=== PATIENT | male | born 1955 | race Caucasian/White ===

== ENCOUNTER 2016-11-13 13:57 | Emergency (ER) | payer MEDICARE ==
[~2016-11-13] VITALS: Ht 170.1 cm; Wt 114.3 kg
[~2016-11-13 13:57] MED LIST: 'TENORMIN50 MG; AMLODIPINE10 MG PO; ASPIRIN325 MG PO; ATENOLOL100 MG PO; ATENOLOL50 MG PO; CLOPIDOGREL75 MG PO; COREG25 MG PO; DYAZIDE 25 MG-31 CAP PO; EYE GTTS; GABAPENTIN600 MG PO; GLIPIZIDE10 M2 PO; GLIPIZIDE10 MG PO; GLUCOPHAGE500 M1 PO; HUMULIN R100 U/ML; HYDR25T PO; HYDRODIURIL25 MG PO; K-DUR 2020 MEQ PO; LANTUS100 U/ML SC; LATANOPROST 2.2.5 ML OU; LIPITOR20 MG PO; LIPITOR40 MG PO; LISINOPRIL/HCTZ1 TA2 PO; LISINOPRIL20 MG PO; LISINOPRIL40 MG PO; NITROSTAT0.4 MG SL; PLAVIX75 MG PO; POTASSIUM20 MEQ PO; SIMVASTATIN40 MG PO; TENORMIN100 MG PO; TOPROL XL50 MG PO; WALKER; ZANTAC150 MG PO; ZOLOFT100 MG PO
[2016-11-13] MEDS ORDERED: PREDNISONE10 MG PO (14:41)
== END 2016-11-13 14:38 | disposition home or self-care (01) ==
LOC: ED 13:57
DX: L23.7 Allergic contact dermatitis due to plants, except food (principal); F17.200 Nicotine dependence, unspecified, uncomplicated; Z88.8 Allergy status to other drugs, medicaments and biological substances; Z79.899 Other long term (current) drug therapy

== ENCOUNTER 2016-11-20 16:22 | Emergency (ER) | payer MEDICARE ==
[~2016-11-20] VITALS: Wt 113.4 kg
[~2016-11-20 16:22] MED LIST changes: +PREDNISONE10 MG PO
[2016-11-20 16:45] LABS: BASO % 0.1 % (0.0-1.0); EOS # 0.1 10*3/uL (0.0-0.4); EOS % 0.9 % (1.0-4.0); HEMOGLOBIN 12.8 g/dl (14.0-18.0); IG # 0.1 10*3/uL (0.0-0.1); LYMPH # 2.7 10*3/uL (1.3-4.4); LYMPH % 19.1 % (27.0-41.0); MEAN CELL VOLUME 87.3 fl (80.0-94.0); MEAN CORPUSCULAR HGB 30.2 pg (27.0-31.0); MEAN CORPUSCULAR HGB CONC 34.6 g/dl (33.0-37.0); MEAN PLATELET VOLUME 10.3 fl (9.6-12.3); MONO # 0.8 10*3/uL (0.1-1.0); MONO % 5.7 % (3.0-9.0); NEUT # 10.3 10*3/uL (2.3-7.9); NEUT % 73.2 % (47.0-73.0); PLATELET COUNT AUTOMATED 156 10*3/uL (130-400); RED BLOOD COUNT 4.24 10*6/uL (4.50-5.90); RED CELL DISTRI WIDTH 13.3 % (0-14.5)
[2016-11-20 16:54] LABS: INTERNATIONAL NORM RATIO 0.9 (2.0-3.5)
[2016-11-20 17:10] LABS: ALBUMIN 3.5 gm/dl (3.1-4.5); ALKALINE PHOSPHATASE 72 U/L (45-117); BILIRUBIN, TOTAL 0.4 mg/dl (0.2-1.0); BUN 23 mg/dl (7-24); CARBON DIOXIDE 25 mmol/L (21-32); CHLORIDE 100 mmol/L (98-107); EST GLOM FILT AFRICAN AMERICAN > 60 ml/min; GLUCOSE 353 mg/dL (65-99); MAGNESIUM 2.2 mg/dL (1.5-2.1); POTASSIUM 3.2 mmol/L (3.5-5.1); SGOT/AST 8 IU/L (3-35); SGPT/ALT 20 U/L (12-78); SODIUM 135 mmol/L (136-145)
[2016-11-20 17:11] LABS: TROPONIN I < 0.015 ng/ml (<0.045)
== END 2016-11-20 19:13 | disposition short-term general hospital (02) ==
LOC: ED 16:22
PROVIDERS: Nurse Practitioner Family
DX: I63.9 Cerebral infarction, unspecified (principal); I11.0 Hypertensive heart disease with heart failure; I50.9 Heart failure, unspecified; E11.9 Type 2 diabetes mellitus without complications; I25.2 Old myocardial infarction; K21.9 Gastro-esophageal reflux disease without esophagitis; E78.5 Hyperlipidemia, unspecified; Z88.8 Allergy status to other drugs, medicaments and biological substances; Z79.899 Other long term (current) drug therapy; Z79.4 Long term (current) use of insulin

== ENCOUNTER → 2017-02-19 | Outpatient (CLI) | payer MEDICARE ==
[2017-02-19 08:36] LABS: BILIRUBIN NEGATIVE (NEGATIVE); BLOOD NEGATIVE (NEGATIVE); CLARITY CLEAR (CLEAR); COLOR YELLOW (YELLOW); GLUCOSE NEGATIVE (NEGATIVE); KETONE NEGATIVE (NEGATIVE); LEUKO ESTERASE NEGATIVE (NEGATIVE); NITRITE NEGATIVE (NEGATIVE); PH 5.5 (5.0-9.0); UROBILINOGEN 0.2 E.U./dl (0.2-1.0)
[2017-02-19 08:37] LABS: MUCOUS 1+; RBC 0-2 rbc/hpf (0-2); WBC 0-2 wbc/hpf (0-5)
[2017-02-19 08:53] LABS: ALBUMIN 3.7 gm/dl (3.1-4.5); BUN 16 mg/dl (7-24); CHLORIDE 107 mmol/L (98-107); CREATININE 0.74 mg/dL (0.70-1.30); PHOSPHOROUS 2.9 mg/dL (2.5-4.9); POTASSIUM 3.8 mmol/L (3.5-5.1); SODIUM 142 mmol/L (136-145)
[2017-02-20 10:08] LABS: CREATININE,URINE 84.4 mg/dL (Not Estab.)
== END | disposition home or self-care (01) ==
LOC: LAB 07:56
PROVIDERS: Internal Medicine Nephrology
DX: I10 Essential (primary) hypertension (principal); E11.9 Type 2 diabetes mellitus without complications

== ENCOUNTER → 2017-03-08 | Outpatient (CLI) | payer MEDICARE | END | disposition home or self-care (01) | LOC: RESCLI 03:15 | DX: I10 Essential (primary) hypertension (principal); E78.5 Hyperlipidemia, unspecified; I25.10 Atherosclerotic heart disease of native coronary artery without angina pectoris; E11.40 Type 2 diabetes mellitus with diabetic neuropathy, unspecified; Z79.4 Long term (current) use of insulin; Z88.8 Allergy status to other drugs, medicaments and biological substances ==

== ENCOUNTER → 2017-03-15 | Outpatient (CLI) | payer MEDICARE | END | disposition home or self-care (01) | LOC: RESCLI 01:58 | DX: I10 Essential (primary) hypertension (principal); E78.5 Hyperlipidemia, unspecified; I25.10 Atherosclerotic heart disease of native coronary artery without angina pectoris; E11.40 Type 2 diabetes mellitus with diabetic neuropathy, unspecified; Z79.4 Long term (current) use of insulin; Z88.8 Allergy status to other drugs, medicaments and biological substances ==

== ENCOUNTER 2017-03-30 01:18 | Inpatient (IN) | payer MEDICARE ==
[~2017-03-30] VITALS: Ht 170.2 cm; Wt 113.6 kg
--- NOTE | ~2017-03-30 | PR ---
[place], [place] PROGRESS NOTE NAME: CONTRERAS CARDOZO [facility] #: [id number] UNIT #: [id number] ROOM: 504 DOCTOR: YULI CAREY MD BIRTHDATE: [birth year] DOS: 03/31/2017 SUBJECTIVE: The patient was seen today at his bedside, 03/31/2017, with his in attendance. He is a 61-year-old man who does have a history of coronary artery disease as well as a history of strokes. He has had angioplasty in the past; those records are not currently available. His most recent stress test in October 2015 showed an ejection fraction of 71% and no ischemia. The patient was at the blood bank yesterday and found to have bradycardia. He was sent to the medical clinic where once again bradycardia was documented. As best I can tell the bradycardia was just documented by pulse or utilization of noninvasive blood pressure equipment. Nonetheless, there was concern that he may have significant arrhythmias and therefore he was sent to the hospital. Since he has been in the hospital, his heart rate has been normal. The slowest pulse documented by electrocardiographic monitoring was in the high 50s. He had no prolonged pauses. He did have frequent PACs. It is my supposition that the PACs were not counted by the noninvasive equipment and he was therefore given a spuriously low heart rate. The patient does have an extensive history of cerebrovascular events or stroke-like events. He was life-flighted from [facility] to the [facility] in November 2016. I have reviewed the records from [facility]. They showed minimal changes on his CAT scan of the head and MRI. No evidence for an acute or chronic stroke was seen. In addition, he had a normal echocardiogram and a normal electroencephalogram. Despite this, he did have prolonged neurologic deficits and did require rehabilitation. He states that he still does have some weakness in his right arm. Overnight, he has had no symptoms. I talked to his and she states that he is at his baseline. PHYSICAL EXAMINATION: VITAL SIGNS: Today his pulse is 71 and regular with occasional premature beats, blood pressure is 120/70. He is afebrile. He weighs 113.6 kilograms. NECK: Supple. He has no jugular distention. Carotids are full. LUNGS: Respirations are unlabored. His chest is clear. HEART: Has a regular rhythm with frequent premature contractions. ABDOMEN: Benign. EXTREMITIES: Showed no edema. IMPRESSION: 1. Examination as an outpatient suggesting erratic pulse and slow heart rate. No monitor strips are available. Monitoring in the hospital shows only sinus rhythm with premature atrial contractions. The longest pause recorded was 1.5 seconds. It is likely that the bradycardia was related to undersensing of premature atrial contractions by noninvasive equipment. 2. History of neurologic events, which may represent cryptogenic strokes. Despite significant and prolonged neurologic deficits, the patient's most recent MRI of the brain showed no significant scarring or evidence for previous stroke. [place], [place] PROGRESS NOTE NAME: CONTRERAS CARDOZO UNIT #: [id number] ROOM: 504 DOCTOR: YULI CAREY MD BIRTHDATE: [birth year] 3. History of hypertension. 4. Type 2 diabetes mellitus, on insulin. PLAN: No other cardiac workup is planned for this inpatient stay. I am somewhat concerned that his "bradycardia" and irregular pulse might be actually atrial fibrillation with pulse deficits. Since this would certainly impact his management and may help explain his neurologic events, I will be arranging for him to undergo a 30-day event recorder as an outpatient and we can follow up with him after that. No other cardiac workup at this time is being considered. I thank the hospitalist physicians for asking our advice regarding his care and I have discussed his care with Dr. Salomón Zimmerman. YULI CAREY MD CM:PNTRANS 35 50 YULI CAREY MD 03/31/171951 interface
--- NOTE | ~2017-03-30 | EKG ---
[place], [place] ELECTROCARDIOGRAM REPORT NAME: CONTRERAS CARDOZO UNIT #: [id number] ROOM: 504 DOCTOR: JOSELIN COURTNEY MD BIRTHDATE: [birth year] DOS: 03/30/2017 EKG REPORT TIME: 09:39:33. RATE AND RHYTHM: Normal sinus rhythm at 77 beats per minute. ID interval 240 milliseconds, QRS duration 97 milliseconds, corrected QT interval 448 milliseconds, QRS axis 16. IMPRESSION: 1. Normal sinus rhythm. 2. First degree atrioventricular block. 3. The patient had bradycardia, heart rate was 37 and the patient will be admitted for bradycardia on monitored bed. JOSELIN COURTNEY MD CM:EKGRPT:ELECTROCARDIOGRAM REPORT [id number] JOSELIN COURTNEY MD
--- NOTE | ~2017-03-30 | CON ---
[place], [place] REPORT OF CON[facility]ULTATION [id number] #: [id number] ROOM: 504 DOCTOR: YULI CAREY MD BIRTHDATE: [birth year] DOS: 03/30/2017 REASON FOR CONSULTATION: Irregular heartbeat, bradycardia. HISTORY OF PRESENT ILLNESS: The patient is a 61-year-old man with a fairly extensive history of vascular disease. He states that in 2001, he had a stroke. He suffered an acute myocardial infarction in the when he was in his 30s. He underwent catheterization and balloon angioplasty without placement of stent at that time. Those records are not currently available. He subsequently had a catheterization at the [facility] in [place] and was told that everything was "okay." He presented to the hospital in 09/2014 with atypical chest pain. He showed no objective evidence for an acute coronary syndrome. A stress test in 09/2014 showed an ejection fraction of 74% and no significant ischemia, another one in 10/2015 showed ejection fraction of 71%, again with no ischemia. The patient did have an MRI of the brain in 2012, which showed mild chronic small vessel ischemic changes, but no evidence for an acute intracranial process. He presented to the hospital on 11/20/2016 with slurred speech and an abnormal CT scan of the head suggesting a possible left middle cerebral artery stroke. He did develop right-sided weakness. He was sent by helicopter to the [facility] where he was evaluated and subsequently discharged to rehabilitation at [facility]. The details of that hospitalization are not yet clear. The patient has improved and states that he has most of the use of his right side now, although when he first was discharged from the hospital, his right side was quite weak. Yesterday, he went to a blood bank to donate was told that his pulse was slow and erratic. He was directed to see his physician. He was seen at the [facility] where once again he was told that his pulse was slow and erratic and directed to the hospital for admission. Since he has been in the hospital, his pulse has been 60-80 with premature atrial contractions, but no other significant arrhythmias. Specifically, there has been no evidence for atrial fibrillation. PAST MEDICAL HISTORY: Includes: 1. Premature coronary artery disease. The patient states that he had a myocardial infarction in the when he was in his 30s and subsequently underwent balloon angioplasty. 2. History of stroke in 2001 and again in November of 2016. 3. History of hypertension. 4. Type 2 diabetes mellitus, treated with insulin. 5. History of right rotator cuff repair. 6. History of kidney stone. 7. History of tobacco abuse. The patient has been abstinent since November of 2016. 8. History of stroke, 11/2016. Details not yet available. REVIEW OF SYSTEMS: The patient denies diplopia or loss of vision. He has chronic right-sided weakness. He denies orthopnea or PND. Denies fevers, [place], [place] REPORT OF CONSULTATION NAME: CONTRERAS CARDOZO UNIT #: [id number] ROOM: [facility] DOCTOR: YULI CAREY MD BIRTHDATE: [birth year] chills, sweats or recent weight change. He denies falling. He denies nausea or vomiting. He denies hemoptysis or hematemesis. He denies any change in his bowel or bladder habits and denies blood in his urine or stool. He denies any recent change in his mild chronic peripheral edema. He denies any history of lower extremity venous thrombosis. He denies any skin rashes. He denies any polyuria or polydipsia. Remainder of the review of systems is negative except as noted above. FAMILY HISTORY: Positive for family members having heart disease at an early age. His father and paternal uncle had heart attacks in their 50s. MEDICATIONS: Prior to admission included amlodipine 5 mg per day, vitamin C 500 mg per day, aspirin 81 mg per day, atorvastatin 80 mg per day alternating with 40 mg per day, gabapentin 600 mg t.i.d., glipizide 10 mg every day, lisinopril 5 mg every day, melatonin 3 mg at bedtime, metformin 500 mg 2 tablets b.i.d. with meals, ranitidine 150 mg b.i.d., sertraline 150 mg at bedtime, spironolactone 25 mg daily, vitamin D 1 capsule daily, Lantus insulin 80 units subcutaneously at bedtime and diclofenac 4 grams topically b.i.d. to his knees. ALLERGIES: The patient lists an allergy to omeprazole. SOCIAL HISTORY: The patient is and lives with his . He was a smoker, but quit in 11/2016. He does not consume alcohol. PHYSICAL EXAMINATION: GENERAL: The patient is an overweight white male who is awake, alert and oriented, but confuses easily and seems to be a very poor historian. VITAL SIGNS: Pulse is 62 and regular with frequent premature beats. These are PACs on the monitor. Blood pressure is 124/68. He is afebrile. He weighs 113.6 kg and has a body mass index of 39.2. HEENT: Normocephalic and atraumatic. Extraocular muscles are intact. Sclerae are clear. Pupils are equal, round and react to light. The oral mucosa is moist. Tongue is midline. NECK: Supple. He has no jugular distention. Carotids are full and I heard no bruits. He had no neck or supraclavicular masses and no thyromegaly. LUNGS: Respirations are unlabored. His chest is clear to auscultation and percussion. He has no presacral edema or chest wall tenderness. CARDIOVASCULAR: His heart has a regular rhythm with frequent premature contractions. He has an S4 gallop, but no S3 or murmur. The PMI is not displaced. There is no precordial heave, lift or thrill. ABDOMEN: Obese, but otherwise benign, without masses, organomegaly or bruits. EXTREMITIES: Showed no edema. Peripheral pulses were palpable in the feet bilaterally. LABORATORY DATA: I reviewed his electrocardiogram, which showed sinus rhythm with a first-degree AV block, but was otherwise normal. IMPRESSION: 1. Examination as an outpatient, suggesting erratic pulse and slow heart rate. Unfortunately, no monitor strips are available. This may represent frequent [place], [place] REPORT OF CONSULTATION NAME: CONTRERAS CARDOZO UNIT #: [id number] ROOM: 504 DOCTOR: YULI CAREY MD BIRTHDATE: [birth year] PACs with a pulse deficit or possibly even atrial fibrillation. 2. Cryptogenic strokes. The patient has had at least 2 strokes documented and possibly more. The most recent of these was evaluated and managed at [facility]. We will request those records in order to help us better evaluate and manage the patient now. 3. History of hypertension and reports history of type 2 diabetes mellitus, on insulin. PLAN: We will be requesting old records from [facility]. We will be monitoring the patient in the hospital and probably for an extended period of time as an outpatient. Before doing an extensive workup locally, we will request records from [facility] to determine if he had a transesophageal echocardiogram, hypercoagulability workup, etc. We thank the hospitalist service for asking our advice regarding his care. YULI CAREY MD CM:CONSTR:REPORT OF CONSULTATION 01 03/30/17 8030 interface
--- NOTE | 2017-03-30 10:25 | NUR ---
A 61, admitted to 5E, under the services of TERRI Esqueda DO with a diagnosis of SYMPTOMATIC BRADYCARDIA. Chief complaint is IRREGULAR HEART RATE WHILE VISITING THE [facility]. Patient arrived via wheel chair [facility]. Monitor applied. Initial assessment completed. Vital signs taken and recorded. TERRI ESQUEDA DO notified of admission to the unit. Orders received. See assessment for past medical history, medications and allergies. Patient and/or family oriented to unit. [address] visitation policy reviewed. Clothing/patient valuable form completed. ZULEIMA PEREZ
[2017-03-30 10:30] VITALS: BP 147/90
[2017-03-30 11:15] LABS: BASO % 0.3 % (0.0-1.0); EOS # 0.1 10*3/uL (0.0-0.4); EOS % 1.5 % (1.0-4.0); HEMATOCRIT 37.8 % (42.0-52.0); LYMPH # 1.8 10*3/uL (1.3-4.4); LYMPH % 20.1 % (27.0-41.0); MEAN CELL VOLUME 87.5 fl (80.0-94.0); MEAN CORPUSCULAR HGB 30.1 pg (27.0-31.0); MEAN CORPUSCULAR HGB CONC 34.4 g/dl (33.0-37.0); MEAN PLATELET VOLUME 10.2 fl (9.6-12.3); MONO # 0.5 10*3/uL (0.1-1.0); MONO % 6.1 % (3.0-9.0); NEUT # 6.4 10*3/uL (2.3-7.9); NEUT % 71.7 % (47.0-73.0); PLATELET COUNT AUTOMATED 172 10*3/uL (130-400); RED BLOOD COUNT 4.32 10*6/uL (4.50-5.90); RED CELL DISTRI WIDTH 13.5 % (0-14.5); WHITE BLOOD COUNT 8.9 10*3/uL (4.8-10.8)
[2017-03-30 11:34] LABS: ALBUMIN 3.8 gm/dl (3.1-4.5); ALKALINE PHOSPHATASE 97 U/L (45-117); BUN 23 mg/dl (7-24); CHLORIDE 104 mmol/L (98-107); POTASSIUM 3.6 mmol/L (3.5-5.1); SGOT/AST 13 IU/L (3-35); SGPT/ALT 24 U/L (12-78); SODIUM 139 mmol/L (136-145); TOTAL PROTEIN 7.6 gm/dL (6.4-8.2)
[2017-03-30 11:42] LABS: INTERNATIONAL NORM RATIO 0.9 (2.0-3.5)
[2017-03-30 12:00] VITALS: BP 141/76
--- NOTE | 2017-03-30 12:00 | NUR ---
IV started left forearm with #22 protective cath after 1 attempts. Site prepped with Chloroprep. Sterile dressing applied. Patient tolerated procedure well. ZULEIMA PEREZ
--- NOTE | 2017-03-30 12:22 | NUR ---
CONSULT CALLED TO DR CAREY
[2017-03-30] MEDS ORDERED: LIPITOR80 MG PO (13:45)
[2017-03-30] MEDS ORDERED: VOLTAREN100 GM T (13:46)
[2017-03-30] MEDS ORDERED: XALATAN 0.005%2.5 ML INTRAOC (13:50)
[2017-03-30] MEDS ORDERED: LISINOPRIL5 MG PO (13:50)
[2017-03-30] MEDS ORDERED: MELATONIN3 MG PO (13:51)
[2017-03-30] MEDS ORDERED: VITAMIN C500 M4 PO (13:52)
[2017-03-30] MEDS ORDERED: SPIRONOLACTONE25 MG PO (13:53)
[2017-03-30] MEDS ORDERED: VITAMIN B COMP1 EAC1 PO (13:53)
[2017-03-30] MEDS ORDERED: NORVASC5 MG PO (13:54)
[2017-03-30] MEDS ORDERED: ASPIRIN CHEWABL81 MG PO (13:55)
--- NOTE | 2017-03-30 14:59 | NUR ---
VERIFIED MEDS WITH MED LIST [facility] CASTELLON
[2017-03-30 16:00] VITALS: BP 124/68
[2017-03-30 20:00] VITALS: BP 150/80
--- NOTE | 2017-03-30 20:20 | NUR ---
PATIENT IS RESTING QUIETLY IN BED WITH NO VOICED COMPLAINTS AT THIS TIME. HE IS PLEASANT/COOPERATIVE WITH ASSESSMENT. RESPIRATIONS EASY/REG. CALL LIGHT IS IN REACH WILL MONITOR.
[2017-03-31] VITALS: BP 127/73
--- NOTE | 2017-03-31 01:41 | NUR ---
REQUESTED AND RECEIVED RESTORIL PER PRN ORDER TO ASSIST WITH SLEEP. WILL MONITOR FOR EFFECTIVENESS
[2017-03-31 07:34] LABS: BASO % 0.2 % (0.0-1.0); EOS # 0.1 10*3/uL (0.0-0.4); HEMATOCRIT 38.7 % (42.0-52.0); LYMPH # 1.9 10*3/uL (1.3-4.4); LYMPH % 20.3 % (27.0-41.0); MEAN CELL VOLUME 86.8 fl (80.0-94.0); MEAN CORPUSCULAR HGB 29.1 pg (27.0-31.0); MEAN CORPUSCULAR HGB CONC 33.6 g/dl (33.0-37.0); MEAN PLATELET VOLUME 10.3 fl (9.6-12.3); MONO # 0.5 10*3/uL (0.1-1.0); MONO % 5.2 % (3.0-9.0); NEUT # 6.8 10*3/uL (2.3-7.9); NEUT % 72.8 % (47.0-73.0); PLATELET COUNT AUTOMATED 172 10*3/uL (130-400); RED BLOOD COUNT 4.46 10*6/uL (4.50-5.90); RED CELL DISTRI WIDTH 13.5 % (0-14.5); WHITE BLOOD COUNT 9.4 10*3/uL (4.8-10.8)
[2017-03-31 07:51] LABS: ALBUMIN 3.7 gm/dl (3.1-4.5); ALKALINE PHOSPHATASE 94 U/L (45-117); BUN 17 mg/dl (7-24); CHLORIDE 106 mmol/L (98-107); CREATININE 0.74 mg/dL (0.70-1.30); PHOSPHOROUS 3.7 mg/dL (2.5-4.9); POTASSIUM 3.8 mmol/L (3.5-5.1); SGOT/AST 13 IU/L (3-35); SGPT/ALT 25 U/L (12-78); SODIUM 142 mmol/L (136-145); TOTAL PROTEIN 7.2 gm/dL (6.4-8.2)
[2017-03-31 07:58] LABS: THYROID STIM HORMONE (HS) 0.851 uIU/ml (0.358-4.75)
[2017-03-31 08:00] VITALS: BP 120/79
--- NOTE | 2017-03-31 08:00 | NUR ---
Aircraft Maintenance Technician in to talk to patient. Patient states lives at HOME with HIS . There are 15 steps in the home. Physician: [facility] Pharmacy: [facility] Home health services: NONE Patient's level of ADLs: INDEPENDENT Patient has working utilities: YES DME: [facility] Follow-up physician's appointment after d/c: WILL BE MADE PRIOR TO DC Does patient want to access PORTAL?: Discharge plan HOME. ROBBY BUSTAMANTE
--- NOTE | 2017-03-31 08:00 | NUR ---
PT STATES HIS [facility] ONLY HEL[facility] PAY FOR MEDS AND NOT HOSPITAL BILL. HAS MEDICARE.
[2017-03-31 08:24] LABS: VITAMIN D, 25-HYDROXY 19.4 ng/mL (30-100)
[2017-03-31 12:49] VITALS: BP 146/72
--- NOTE | 2017-03-31 13:05 | NUR ---
Discharge instructions reviewed with patient/family. Patient receptive and verbalizes understanding. Follow-up care arranged. Written instructions given to patient/family. SENIA TORIBIO
== END 2017-03-31 13:05 | disposition home or self-care (01) | DRG 309 ==
LOC: RESCLI 01:18 → 5E 10:11 → RESCLI 16:11 → 5E 03-31 13:05
PROVIDERS: Student in an Organized Health Care Education/Training Program; ADMIT Internal Medicine
DX: R00.1 Bradycardia, unspecified (principal); I50.32 Chronic diastolic (congestive) heart failure; I11.0 Hypertensive heart disease with heart failure; E11.65 Type 2 diabetes mellitus with hyperglycemia; I69.351 Hemiplegia and hemiparesis following cerebral infarction affecting right dominant side; D72.810 Lymphocytopenia; E78.5 Hyperlipidemia, unspecified; F32.9 Major depressive disorder, single episode, unspecified; K21.9 Gastro-esophageal reflux disease without esophagitis; E66.9 Obesity, unspecified; D64.9 Anemia, unspecified; F10.21 Alcohol dependence, in remission; I25.2 Old myocardial infarction; Z82.49 Family history of ischemic heart disease and other diseases of the circulatory system; Z80.0 Family history of malignant neoplasm of digestive organs; Z87.442 Personal history of urinary calculi; Z88.8 Allergy status to other drugs, medicaments and biological substances; Z79.82 Long term (current) use of aspirin; Z79.84 Long term (current) use of oral hypoglycemic drugs; Z79.4 Long term (current) use of insulin; Z79.899 Other long term (current) drug therapy; Z95.818 Presence of other cardiac implants and grafts; Z87.891 Personal history of nicotine dependence; Z68.39 Body mass index [BMI] 39.0-39.9, adult

== ENCOUNTER → 2017-04-19 | Outpatient (CLI) | payer MEDICARE ==
[~2017-04-19] MED LIST changes: +ASPIRIN CHEWABL81 MG PO; +GARCINIA CAMBO1 EACH PO; +LIPITOR80 MG PO; +LISINOPRIL5 MG PO; +MELATONIN3 MG PO; +NORVASC5 MG PO; +SPIRONOLACTONE25 MG PO; +VITAMIN B COMP1 EAC1 PO; +VITAMIN C500 M4 PO; +VOLTAREN100 GM T; +XALATAN 0.005%2.5 ML INTRAOC; +ZESTRIL10 MG PO
== END | disposition home or self-care (01) ==
LOC: RESCLI 02:39
DX: Z09 Encounter for follow-up examination after completed treatment for conditions other than malignant neoplasm (principal); E66.01 Morbid (severe) obesity due to excess calories; I10 Essential (primary) hypertension; E78.5 Hyperlipidemia, unspecified; I25.10 Atherosclerotic heart disease of native coronary artery without angina pectoris; E11.40 Type 2 diabetes mellitus with diabetic neuropathy, unspecified; K21.9 Gastro-esophageal reflux disease without esophagitis; Z88.8 Allergy status to other drugs, medicaments and biological substances; Z86.73 Personal history of transient ischemic attack (TIA), and cerebral infarction without residual deficits

== ENCOUNTER 2017-04-22 14:01 | Inpatient (IN) | payer MEDICARE ==
[~2017-04-22] VITALS: Ht 182.8 cm; Wt 0.0 kg
--- NOTE | ~2017-04-22 | ST ---
[place], [place] EXERCISE STRESS TEST REPORT [facility] [id number] UNIT #: [id number] ROOM: 405 DOCTOR: DOC BENTLEY MD BIRTHDATE: [birth year] DOS: 04/23/2017 LEXISCAN STRESS EKG REFERRING PHYSICIAN: Dr. Estrada. INDICATION: Central chest pain. The patient underwent standard protocol Lexiscan stress EKG. The patient's baseline EKG showed sinus bradycardia with heart rate of 57 with a blood pressure of 140/78. The patient's peak heart rate was 82 with a blood pressure of 130/62. The patient had mild chest discomfort with no ST changes or arrhythmias noted. SUMMARY OF FINDINGS: 1. Unremarkable Lexiscan stress EKG with mild symptoms of chest discomfort. 2. Please see separate report for perfusion scan imaging results. DOC BENTLEY MD CM:STRESS:EXERCISE STRESS TEST REPORT [id number] 1945 DOC BENTLEY MD
[~2017-04-22 14:01] MED LIST changes: -GARCINIA CAMBO1 EACH PO; -ZESTRIL10 MG PO
[2017-04-22 14:19] VITALS: BP 135/71
[2017-04-22 14:23] LABS: BASO % 0.2 % (0.0-1.0); EOS # 0.2 10*3/uL (0.0-0.4); EOS % 2.6 % (1.0-4.0); HEMATOCRIT 36.1 % (42.0-52.0); HEMOGLOBIN 12.4 g/dl (14.0-18.0); LYMPH # 1.7 10*3/uL (1.3-4.4); LYMPH % 19.5 % (27.0-41.0); MEAN CELL VOLUME 85.5 fl (80.0-94.0); MEAN CORPUSCULAR HGB 29.4 pg (27.0-31.0); MEAN CORPUSCULAR HGB CONC 34.3 g/dl (33.0-37.0); MEAN PLATELET VOLUME 10.1 fl (9.6-12.3); MONO # 0.5 10*3/uL (0.1-1.0); MONO % 5.5 % (3.0-9.0); NEUT # 6.1 10*3/uL (2.3-7.9); NEUT % 71.8 % (47.0-73.0); PLATELET COUNT AUTOMATED 164 10*3/uL (130-400); RED BLOOD COUNT 4.22 10*6/uL (4.50-5.90); RED CELL DISTRI WIDTH 13.9 % (0-14.5); WHITE BLOOD COUNT 8.5 10*3/uL (4.8-10.8)
[2017-04-22 14:40] LABS: ALBUMIN 3.8 gm/dl (3.1-4.5); ALKALINE PHOSPHATASE 89 U/L (45-117); BUN 23 mg/dl (7-24); CHLORIDE 104 mmol/L (98-107); CREATININE 0.86 mg/dL (0.70-1.30); POTASSIUM 3.9 mmol/L (3.5-5.1); SGOT/AST 13 IU/L (3-35); SGPT/ALT 27 U/L (12-78); SODIUM 137 mmol/L (136-145); TOTAL PROTEIN 7.5 gm/dL (6.4-8.2)
[2017-04-22 14:43] LABS: TROPONIN I < 0.015 ng/ml (<0.045)
[2017-04-22 14:58] VITALS: BP 134/68
--- NOTE | 2017-04-22 15:03 | NUR ---
BTG SL GIVEN AT 1458 WHEN PAIN WAS 5/10. PAIN IS NOW 3/10 AFTER NTG SL. VITALS STABLE (SEE)
[2017-04-22 15:17] VITALS: BP 122/73
[2017-04-22 16:00] VITALS: BP 130/70
[2017-04-22] MEDS ORDERED: ZESTRIL10 MG PO (16:44)
[2017-04-22] MEDS ORDERED: GARCINIA CAMBO1 EACH PO (16:45)
--- NOTE | 2017-04-22 16:49 | NUR ---
PT. IS RESTING IN BED WITH HOB ELVATED AND RESPIRATIONS EASY AND REGULAR. PT. DENIES CP AT THIS PRESENT TIME STATING "THAT NITRO IN ER REALLY WORKED." LUNGS WERE CLEAR, DIMINISHED RIGHT POSTERIOR BASE. RIGHT SIDED WEAKNESS NOTED WITH ASSESSMENT. CALL LIGHT IS WITHIN REACH, BED LOW AND WHEELS LOCKED. SEE SHIFT ASSESSMENT.
--- NOTE | 2017-04-22 16:49 | NUR ---
Time: 1619 A 61 year old M admitted to under services of LATOYA ARELLANO DO. Pt. arrived via stretcher from ER. Chief complaint: CHEST PAIN. SENIA TORIBIO
--- NOTE | 2017-04-22 17:41 | NUR ---
DR. BENTLEY MADE AWARE OF CONSULT.
[2017-04-22 20:00] VITALS: BP 131/69
[2017-04-23] VITALS: BP 135/76
--- NOTE | 2017-04-23 00:49 | NUR ---
24 HR chart check completed.
[2017-04-23 07:22] LABS: BASO % 0.2 % (0.0-1.0); EOS # 0.2 10*3/uL (0.0-0.4); EOS % 2.4 % (1.0-4.0); HEMATOCRIT 37.3 % (42.0-52.0); HEMOGLOBIN 12.7 g/dl (14.0-18.0); LYMPH # 1.5 10*3/uL (1.3-4.4); LYMPH % 17.9 % (27.0-41.0); MEAN CELL VOLUME 87.6 fl (80.0-94.0); MEAN CORPUSCULAR HGB 29.8 pg (27.0-31.0); MEAN PLATELET VOLUME 10.3 fl (9.6-12.3); MONO # 0.5 10*3/uL (0.1-1.0); MONO % 5.9 % (3.0-9.0); NEUT # 6.2 10*3/uL (2.3-7.9); NEUT % 73.4 % (47.0-73.0); PLATELET COUNT AUTOMATED 158 10*3/uL (130-400); RED BLOOD COUNT 4.26 10*6/uL (4.50-5.90); RED CELL DISTRI WIDTH 13.9 % (0-14.5); WHITE BLOOD COUNT 8.5 10*3/uL (4.8-10.8)
[2017-04-23 07:38] LABS: ALBUMIN 3.7 gm/dl (3.1-4.5); BUN 19 mg/dl (7-24); CHLORIDE 103 mmol/L (98-107); CHOLESTEROL 126 mg/dL (<200); PHOSPHOROUS 2.7 mg/dL (2.5-4.9); POTASSIUM 3.8 mmol/L (3.5-5.1); SGOT/AST 15 IU/L (3-35); SGPT/ALT 30 U/L (12-78); SODIUM 138 mmol/L (136-145)
[2017-04-23 07:46] LABS: ALKALINE PHOSPHATASE 87 U/L (45-117); CREATININE 0.82 mg/dL (0.70-1.30); FREE T4 0.89 ng/dl (0.76-1.46); HDL CHOLESTEROL 43 mg/dl (40-60); LDL CHOLESTEROL 59 mg/dL (9-159); TOTAL PROTEIN 7.3 gm/dL (6.4-8.2); TRIGLYCERIDES 120 mg/dl (<150); VLDL CHOLESTEROL 24 mg/dL (6-40)
--- NOTE | 2017-04-23 07:50 | NUR ---
PHYSICAL THERAPY Nursing screen received. Main admitting DX chest pain. Please order PT as needed when medically appropriate. Thank you. Salina Sutton,PT
--- NOTE | 2017-04-23 07:57 | NUR ---
Nursing screen completed this date and chart review completed. Patient may require Occupational Therapy evaluation to determine level of ADls, safety and education. Consider OT referral when patient is medically appropriate. Sri Goyal OTR/fredis
[2017-04-23 08:00] VITALS: BP 128/70
--- NOTE | 2017-04-23 08:00 | NUR ---
Finished Goods Planner in to talk to patient. Patient states lives at HOME with HIS . There are 15 steps in the home. Physician: [facility]acy: [place] [facility] Home health services: NONE Patient's level of ADLs: MINIMAL ASSIST Patient has working utilities: YES DME: [facility] Follow-up physician's appointment after d/c: WILL BE MADE PRIOR TO DC Does patient want to access PORTAL?: Discharge plan HOME. ROBBY BUSTAMANTE PT STATES [place] ONLY HELPS PAY FOR MEDS. NOT CANDIDATE TO GO TO [facility]
--- NOTE | 2017-04-23 08:20 | NUR ---
Nursing Screen received and Occupational Therapy referral received. Thank you for this referral. Sri Goyal OTR/L
[2017-04-23 08:44] LABS: VITAMIN D, 25-HYDROXY 16.1 ng/mL (30-100)
--- NOTE | 2017-04-23 09:55 | NUR ---
PT COMPLAINED OF NEW ONSET NASEAU. DR PINEDA WAS CALLED AND NOTIFIED AND ORDERED 1 DOSE OF IV ZOPHRAN NOW.
--- NOTE | 2017-04-23 11:59 | NUR ---
Nutritional Support Services Note: Pt with Dx of chest pain with risk for cardiac etiology. Currently receiving a regular diet. [id number]. Pt declines a need for a diabetic diet. Appetite is good for meals. No nutrition recommendations at this time. Will follow. Mary Pang
--- NOTE | 2017-04-23 12:49 | NUR ---
INFORMED SIGNED CONSENT OBTAINED FOR LEXISCAN STRESS TEST WITH DR BENTLEY. RESTING EKG SINUS BRADYCARDIA HR 57 BP 140/78. PULSE OX 99% LUNGS CLEAR. PT COMPLETED ONE MINUTE OF A LEXISCAN PROTOCOL WITH PT RECEIVING LEXISCAN 0.4MG IV OVER 10 SECONDS. PT C/O THROAT AND CHEST DISCOMFORT WITH INJECTION. NO ARRHYTHMIAS OR ST CHANGES NOTED. LAST RECOVERY HR OF 67 BP 130/62. PT IN STABLE CONDITION AWAITING NUCLEAR IMAGES.
[2017-04-23 16:00] VITALS: BP 135/75
[2017-04-23] MEDS ORDERED: LANTUS SOL100 UNIT/1 SQ (18:31)
--- NOTE | 2017-04-23 18:50 | NUR ---
DR HERMAN WAS NOTIFIED THAT DUE TO THE PATIENT GIVING US A INACCURATE MED LIST THE PATIENT DID NOT HAVE LANTUS ON HIS HOME MEDS. DR HERMAN ORDERED 40 UNITS SQ TONIGHT DUE TO THE PATIENT ONLY HAVING 1 MEAL AND TO ADJUST TOMORROWS DOSE BASED ON BLOOD SUGAR TRENDS THROUGHOUT THE NIGHT AND IN THE MORNING.
[2017-04-23 20:00] VITALS: BP 126/64
[2017-04-24] VITALS: BP 116/72
[2017-04-24 06:52] LABS: BASO % 0.4 % (0.0-1.0); EOS # 0.2 10*3/uL (0.0-0.4); EOS % 1.9 % (1.0-4.0); HEMATOCRIT 37.4 % (42.0-52.0); HEMOGLOBIN 12.5 g/dl (14.0-18.0); LYMPH % 21.4 % (27.0-41.0); MEAN CELL VOLUME 88.6 fl (80.0-94.0); MEAN CORPUSCULAR HGB 29.6 pg (27.0-31.0); MEAN CORPUSCULAR HGB CONC 33.4 g/dl (33.0-37.0); MEAN PLATELET VOLUME 10.2 fl (9.6-12.3); MONO # 0.7 10*3/uL (0.1-1.0); MONO % 7.2 % (3.0-9.0); NEUT # 6.4 10*3/uL (2.3-7.9); NEUT % 68.6 % (47.0-73.0); PLATELET COUNT AUTOMATED 172 10*3/uL (130-400); RED BLOOD COUNT 4.22 10*6/uL (4.50-5.90); RED CELL DISTRI WIDTH 13.9 % (0-14.5); WHITE BLOOD COUNT 9.4 10*3/uL (4.8-10.8)
[2017-04-24 07:25] LABS: ALBUMIN 3.6 gm/dl (3.1-4.5); ALKALINE PHOSPHATASE 87 U/L (45-117); BUN 23 mg/dl (7-24); CHLORIDE 102 mmol/L (98-107); CREATININE 0.97 mg/dL (0.70-1.30); LIPASE 147 U/L (73-393); POTASSIUM 3.8 mmol/L (3.5-5.1); SGOT/AST 13 IU/L (3-35); SGPT/ALT 27 U/L (12-78); SODIUM 140 mmol/L (136-145)
[2017-04-24 07:28] LABS: TOTAL PROTEIN 7.4 gm/dL (6.4-8.2)
[2017-04-24 08:00] VITALS: BP 122/70
--- NOTE | 2017-04-24 08:00 | NUR ---
PATIENT SLEEPING IN BED. VOICES NO COMPLAINTS WHEN AWAKEN. BED IS IN LOW POSITION. CALL LIGHT IS WITHIN REACH.
[2017-04-24 12:00] VITALS: BP 116/65
--- NOTE | 2017-04-24 13:21 | NUR ---
Discharge instructions reviewed with patient/family. Patient receptive and verbalizes understanding. Follow-up care arranged. Written instructions given to patient/family. HEPLOCK REMOVED INTACT. HEART MONITOR REMOVED. BRUNO SWAIN
== END 2017-04-24 13:21 | disposition home or self-care (01) | DRG 303 ==
LOC: ED 14:01 → 4E 15:28 → EDHOLD 15:28 → 4E 15:59
PROVIDERS: Emergency Medicine; Internal Medicine; ADMIT Emergency Medicine
PROC: 4A02XM4 Measurement of Cardiac Total Activity, External Approach (ICD-10-PCS; principal; 2017-04-23)
PROC: 3E073KZ Introduction of Other Diagnostic Substance into Coronary Artery, Percutaneous Approach (ICD-10-PCS; principal; 2017-04-23)
DX: I25.110 Atherosclerotic heart disease of native coronary artery with unstable angina pectoris (principal); I11.0 Hypertensive heart disease with heart failure; I50.32 Chronic diastolic (congestive) heart failure; E11.65 Type 2 diabetes mellitus with hyperglycemia; F32.9 Major depressive disorder, single episode, unspecified; K21.9 Gastro-esophageal reflux disease without esophagitis; D64.9 Anemia, unspecified; F10.21 Alcohol dependence, in remission; D72.810 Lymphocytopenia; E55.9 Vitamin D deficiency, unspecified; E78.5 Hyperlipidemia, unspecified; Z79.4 Long term (current) use of insulin; Z87.891 Personal history of nicotine dependence; I25.2 Old myocardial infarction; Z86.73 Personal history of transient ischemic attack (TIA), and cerebral infarction without residual deficits; Z79.84 Long term (current) use of oral hypoglycemic drugs; Z79.899 Other long term (current) drug therapy; Z79.82 Long term (current) use of aspirin; Z88.8 Allergy status to other drugs, medicaments and biological substances; Z82.49 Family history of ischemic heart disease and other diseases of the circulatory system; Z82.3 Family history of stroke; Z80.0 Family history of malignant neoplasm of digestive organs

== ENCOUNTER 2017-06-15 00:39 | Inpatient (IN) | payer MEDICARE ==
[~2017-06-15] VITALS: Ht 170.2 cm; Wt 119.3 kg
--- NOTE | ~2017-06-15 | CON ---
[place], [place] REPORT OF CONSULTATION NAME: [facility]ZO [id number] UNIT #: [id number] ROOM: 411 DOCTOR: YULI CAREY MD BIRTHDATE: [birth year] DOS: 06/16/2017 REASON FOR CONSULTATION: Irregular heartbeat. HISTORY OF PRESENT ILLNESS: The patient is a 61-year-old man with a complicated history of atherosclerotic heart disease. He had a stroke in 2001. He actually suffered an acute myocardial infarction in the 1970s when he was in his 30s. He underwent catheterization and balloon angioplasty at that time without placement of a stent. Those records are not currently available. He subsequently had catheterization at the [facility] in [place] and was told that everything was "okay." He presented to the hospital in September 2014 with atypical chest pain. He had no objective evidence for an acute coronary syndrome. A stress test in September 2014 showed an ejection fraction of 74% without significant ischemia. Another one was done in October 2015, at which time his ejection fraction was 71% without ischemia. He had another stress test on 04/23/2017, which showed an ejection fraction of 64% and no evidence for ischemia. The patient had an MRI of the brain in 2012, which showed mild chronic small vessel ischemic changes, but no evidence for an acute intracranial process. 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 He developed right-sided weakness and was sent by helicopter to the [facility] where he was evaluated and discharged to rehabilitation at [facility]. We saw him after that. He did undergo a 30 day mobile cardiac outpatient quality assurance monitor final from 04/07/2017 to 05/07/2017. His heart rate varied from 50 to 135 without any evidence for atrial fibrillation. He did have very frequent premature atrial contractions. He was evaluated a week ago for a viral infection. Yesterday, he was in the office for followup, at which time he was told that his heartbeat was irregular. An electrocardiogram was done which showed sinus rhythm with premature atrial contractions; however, it apparently was misinterpreted as showing atrial fibrillation. The patient was hospitalized with new onset atrial fibrillation and we were asked to see him. PAST MEDICAL HISTORY: Includes the followin. Premature coronary artery disease. The patient states that he had a myocardial infarction in the 1970s when he was in his 30s and subsequently underwent balloon angioplasty. 2. History of stroke in 2001 and again in November 2016. 3. History of hypertension. 4. Type 2 diabetes mellitus, treated with insulin. 5. History of right rotator cuff repair. 6. History of kidney stone. 7. History of tobacco abuse. The patient has been abstinent since November 2016. REVIEW OF SYSTEMS: The patient denies diplopia or loss of vision. He does have chronic right-sided weakness which is improving gradually. He denies orthopnea [place], [place] REPORT OF CONSULTATION NAME: CONTRERAS CARDOZO UNIT #: [id number] ROOM: 411 DOCTOR: YULI CAREY MD BIRTHDATE: [birth year] or PND. He denies fevers, chills, sweats or recent weight change. He denies any falling episodes. He has not had any nausea or vomiting. He denies hemoptysis or hematemesis. He denies change in bowel or bladder habits and denies blood in his urine or urine or stools. He denies any recent change in his mild chronic peripheral edema. He denies any history of lower extremity venous thrombosis. He denies any skin rashes. He has not had polyuria or polydipsia. The remainder of the review of systems is negative except as noted above. FAMILY HISTORY: Family members have had heart disease at an early age. His father and paternal uncle both had heart attacks in their 50s. MEDICATIONS: Prior to admission included amlodipine 5 mg daily, atorvastatin 80 mg daily, garcinia cambogia daily, gabapentin 300 mg t.i.d., glipizide 10 mg every morning, lisinopril 10 mg daily, melatonin 3 mg at bedtime, metformin 500 mg b.i.d., ranitidine 150 mg b.i.d., sertraline 100 mg at bedtime, spironolactone 25 mg daily and Lantus insulin 80 units subcutaneously at bedtime. He also takes aspirin 81 mg daily. ALLERGIES: He lists an allergy to OMEPRAZOLE. SOCIAL HISTORY: The patient is a former smoker. PHYSICAL EXAMINATION: GENERAL: The patient is a well-nourished white male who is awake, alert and oriented. VITAL SIGNS: Pulse is 54 with an occasional premature beat, blood pressure is 116/61. He is afebrile. He weighs 119.3 kg and has a body mass index of 41.2. HEENT: Normocephalic and atraumatic. Extraocular muscles are intact. Sclerae are clear. He does have a slight right facial droop and ptosis of the right eye. Pupils are equal, round and react to light. The oral mucosa is moist. Tongue is midline. NECK: Supple. He has no jugular distention. Carotids are full without bruits. He has no neck or supraclavicular masses and no thyromegaly. LUNGS: Respirations are unlabored. His chest is clear to auscultation and percussion. He has no presacral edema or chest wall tenderness. CARDIOVASCULAR: His heart has a regular rhythm. He has a fourth heart sound, but no third heart sound or murmur. The PMI is not displaced. He has no precordial heave, lift or thrill. ABDOMEN: Soft and normally active without masses, organomegaly or bruits. EXTREMITIES: Showed no edema. Peripheral pulses are diminished, but palpable in the feet. LABORATORY DATA: I reviewed his electrocardiogram, which showed sinus bradycardia with premature atrial contractions. I have also reviewed his monitor, it shows PACs, but no atrial fibrillation. IMPRESSIONS: 1. Probable sick sinus syndrome. The patient does have sinus bradycardia and multiple premature atrial contractions; however, we have no evidence that he has [place], [place] REPORT OF CONSULTATION NAME: CONTRERAS CARDOZO UNIT #: [id number] ROOM: 411 DOCTOR: YULI CAREY MD BIRTHDATE: [birth year] now or has ever had atrial fibrillation. The patient recently did undergo a 30 day mobile cardiac outpatient telemetry, which showed no evidence for atrial fibrillation. 2. History of coronary artery disease at an early age. 3. Status post 2 previous strokes. PLAN: The patient may be discharged from a cardiac standpoint. I would keep him on antiplatelet therapies for now. He has a followup appointment in the near future. We can discuss with him whether an implantable loop recorder may be helpful to help determine if he does have very infrequent episodes of atrial fibrillation, but I think at this point he simply has rhythm variations that mimic an irregular heartbeat on exam. I thank the hospitalist group for asking our advice regarding the patient's care. YULI CAREY MD CM:CONSTR:REPORT OF CONSULTATION 1836 06/16/172023 interface
--- NOTE | ~2017-06-15 | EKG ---
[place], [place] ELECTROCARDIOGRAM REPORT NAME: CONTRERAS CARDOZO UNIT #: [id number] ROOM: 411 DOCTOR: JOSELIN COURTNEY MD BIRTHDATE: [birth year] DOS: 06/15/2017 TIME: 15:09:54. RATE AND RHYTHM: Sinus bradycardia at 55 beats per minute. TX interval 100 milliseconds, QRS duration is 95 milliseconds. The corrected QT interval is 393 milliseconds, QRS axis 15. IMPRESSION: Normal sinus rhythm with occasional PAC noted. Essentially normal EKG. JOSELIN COURTNEY MD CM:EKGRPT:ELECTROCARDIOGRAM REPORT JOSELIN COURTNEY MD
--- NOTE | ~2017-06-15 | EKG ---
[place], [place] ELECTROCARDIOGRAM REPORT NAME: CONTRERAS CARDOZO UNIT #: [id number] ROOM: 411 DOCTOR: JOSELIN COURTNEY MD BIRTHDATE: [birth year] DOS: 06/15/2017 TIME: 15:09:54. RATE AND RHYTHM: Sinus bradycardia, 55 beats per minute. WA interval 38 milliseconds, QRS duration 95 milliseconds, corrected QT interval is 393 milliseconds, QRS axis is 59. IMPRESSION: 1. Sinus bradycardia, otherwise normal EKG. 2. There are nonspecific T-wave changes in lead III and aVF. 3. There is also sinus arrhythmia seen and occasional PAC also seen. JOSELIN COURTNEY MD CM:EKGRPT:ELECTROCARDIOGRAM REPORT 1103 [id number] JOSELIN COURTNEY MD
[~2017-06-15 00:39] MED LIST changes: +GARCINIA CAMBO1 EACH PO; +LANTUS SOL100 UNIT/1 SQ; +ZESTRIL10 MG PO
[2017-06-15 16:00] VITALS: BP 137/85; BP 178/74
[2017-06-15 16:46] LABS: BASO % 0.2 % (0.0-1.0); EOS # 0.2 10*3/uL (0.0-0.4); EOS % 1.9 % (1.0-4.0); HEMATOCRIT 37.7 % (42.0-52.0); HEMOGLOBIN 12.8 g/dl (14.0-18.0); LYMPH # 1.8 10*3/uL (1.3-4.4); MEAN CELL VOLUME 86.5 fl (80.0-94.0); MEAN CORPUSCULAR HGB 29.4 pg (27.0-31.0); MEAN PLATELET VOLUME 9.7 fl (9.6-12.3); MONO # 0.5 10*3/uL (0.1-1.0); MONO % 5.6 % (3.0-9.0); NEUT # 6.6 10*3/uL (2.3-7.9); PLATELET COUNT AUTOMATED 179 10*3/uL (130-400); RED BLOOD COUNT 4.36 10*6/uL (4.50-5.90); RED CELL DISTRI WIDTH 13.6 % (0-14.5); WHITE BLOOD COUNT 9.1 10*3/uL (4.8-10.8)
[2017-06-15 16:56] LABS: ACT PARTIAL THROMBO TIME 23.1 SECONDS (20.8-31.5)
[2017-06-15 17:03] LABS: ALBUMIN 3.8 gm/dl (3.1-4.5); ALKALINE PHOSPHATASE 84 U/L (45-117); BUN 17 mg/dl (7-24); CHLORIDE 105 mmol/L (98-107); FREE T4 0.84 ng/dl (0.76-1.46); SGOT/AST 15 IU/L (3-35); SGPT/ALT 34 U/L (12-78); SODIUM 138 mmol/L (136-145); TOTAL PROTEIN 7.3 gm/dL (6.4-8.2)
[2017-06-15 17:11] LABS: TROPONIN I < 0.015 ng/ml (<0.045)
[2017-06-15 20:00] VITALS: BP 144/77
[2017-06-15 21:38] LABS: BILIRUBIN NEGATIVE (NEGATIVE); BLOOD NEGATIVE (NEGATIVE); CLARITY SL CLOUDY (CLEAR); COLOR YELLOW (YELLOW); GLUCOSE 2+ (NEGATIVE); KETONE NEGATIVE (NEGATIVE); LEUKO ESTERASE NEGATIVE (NEGATIVE); NITRITE NEGATIVE (NEGATIVE); PH 5.5 (5.0-9.0); SPECIFIC GRAVITY >= 1.030 (1.005-1.030); UROBILINOGEN 0.2 E.U./dl (0.2-1.0)
[2017-06-15 22:08] LABS: BACTERIA 1+; CALCIUM OXALATE CRYSTALS 3+; EPITHELIAL CELLS 0-2; FINE GRANULAR CAST 0-2; MUCOUS TRACE; RBC 0-2 rbc/hpf (0-2)
[2017-06-15 23:54] VITALS: BP 118/78
[2017-06-16] VITALS: BP 129/93
[2017-06-16 06:27] LABS: BASO % 0.2 % (0.0-1.0); EOS # 0.1 10*3/uL (0.0-0.4); EOS % 0.7 % (1.0-4.0); HEMATOCRIT 34.6 % (42.0-52.0); HEMOGLOBIN 11.9 g/dl (14.0-18.0); LYMPH # 1.5 10*3/uL (1.3-4.4); LYMPH % 15.9 % (27.0-41.0); MEAN CELL VOLUME 87.2 fl (80.0-94.0); MEAN CORPUSCULAR HGB CONC 34.4 g/dl (33.0-37.0); MEAN PLATELET VOLUME 10.3 fl (9.6-12.3); MONO # 0.5 10*3/uL (0.1-1.0); MONO % 5.2 % (3.0-9.0); NEUT # 7.4 10*3/uL (2.3-7.9); NEUT % 77.5 % (47.0-73.0); PLATELET COUNT AUTOMATED 163 10*3/uL (130-400); RED BLOOD COUNT 3.97 10*6/uL (4.50-5.90); RED CELL DISTRI WIDTH 13.6 % (0-14.5); WHITE BLOOD COUNT 9.5 10*3/uL (4.8-10.8)
[2017-06-16 06:35] LABS: ALBUMIN 3.6 gm/dl (3.1-4.5); BUN 19 mg/dl (7-24); CHLORIDE 103 mmol/L (98-107); CHOLESTEROL 101 mg/dL (<200); CREATININE 0.83 mg/dL (0.70-1.30); HDL CHOLESTEROL 39 mg/dl (40-60); POTASSIUM 3.7 mmol/L (3.5-5.1); SGOT/AST 17 IU/L (3-35); SGPT/ALT 27 U/L (12-78); SODIUM 139 mmol/L (136-145)
[2017-06-16 06:43] LABS: ALKALINE PHOSPHATASE 76 U/L (45-117); FREE T4 0.91 ng/dl (0.76-1.46); LDL CHOLESTEROL 24 mg/dL (9-159); PHOSPHOROUS 3.4 mg/dL (2.5-4.9); TOTAL PROTEIN 6.7 gm/dL (6.4-8.2); TRIGLYCERIDES 190 mg/dl (<150); VLDL CHOLESTEROL 38 mg/dL (6-40)
[2017-06-16 07:44] LABS: VITAMIN D, 25-HYDROXY 14.7 ng/mL (30-100)
[2017-06-16 08:00] VITALS: BP 140/90
[2017-06-16 12:00] VITALS: BP 141/78
[2017-06-16 16:00] VITALS: BP 116/61
[2017-06-16 20:00] VITALS: BP 121/80
[2017-06-17] VITALS: BP 136/83
[2017-06-17 06:17] LABS: BASO % 0.2 % (0.0-1.0); EOS # 0.2 10*3/uL (0.0-0.4); EOS % 2.2 % (1.0-4.0); HEMATOCRIT 37.8 % (42.0-52.0); HEMOGLOBIN 12.7 g/dl (14.0-18.0); LYMPH # 2.2 10*3/uL (1.3-4.4); LYMPH % 27.9 % (27.0-41.0); MEAN CELL VOLUME 87.3 fl (80.0-94.0); MEAN CORPUSCULAR HGB 29.3 pg (27.0-31.0); MEAN CORPUSCULAR HGB CONC 33.6 g/dl (33.0-37.0); MEAN PLATELET VOLUME 9.8 fl (9.6-12.3); MONO # 0.4 10*3/uL (0.1-1.0); MONO % 5.4 % (3.0-9.0); NEUT # 5.1 10*3/uL (2.3-7.9); NEUT % 63.8 % (47.0-73.0); PLATELET COUNT AUTOMATED 172 10*3/uL (130-400); RED BLOOD COUNT 4.33 10*6/uL (4.50-5.90); RED CELL DISTRI WIDTH 13.6 % (0-14.5)
[2017-06-17 06:32] LABS: ALBUMIN 3.7 gm/dl (3.1-4.5); BUN 18 mg/dl (7-24); CHLORIDE 105 mmol/L (98-107); CREATININE 0.79 mg/dL (0.70-1.30); POTASSIUM 4.4 mmol/L (3.5-5.1); SGOT/AST 17 IU/L (3-35); SODIUM 140 mmol/L (136-145)
[2017-06-17 06:34] LABS: ALKALINE PHOSPHATASE 81 U/L (45-117); SGPT/ALT 28 U/L (12-78); TOTAL PROTEIN 7.3 gm/dL (6.4-8.2)
[2017-06-17 08:00] VITALS: BP 126/74
[2017-06-17 12:00] VITALS: BP 142/73
[2017-06-17] MEDS ORDERED: ASPIRIN ADULT L81 M2 PO (13:03)
[2017-06-17] MEDS ORDERED: VITAMIN D-32000 UNIT PO (13:03)
== END 2017-06-17 13:36 | disposition home or self-care (01) | DRG 309 ==
LOC: RESCLI 00:39 → 4E 15:48
PROVIDERS: Internal Medicine; Student in an Organized Health Care Education/Training Program
DX: I49.5 Sick sinus syndrome (principal); I50.32 Chronic diastolic (congestive) heart failure; I11.0 Hypertensive heart disease with heart failure; E11.65 Type 2 diabetes mellitus with hyperglycemia; Z68.41 Body mass index [BMI] 40.0-44.9, adult; I69.351 Hemiplegia and hemiparesis following cerebral infarction affecting right dominant side; E66.01 Morbid (severe) obesity due to excess calories; D64.9 Anemia, unspecified; I25.10 Atherosclerotic heart disease of native coronary artery without angina pectoris; E78.5 Hyperlipidemia, unspecified; K21.9 Gastro-esophageal reflux disease without esophagitis; F32.9 Major depressive disorder, single episode, unspecified; E55.9 Vitamin D deficiency, unspecified; Z79.4 Long term (current) use of insulin; Z87.891 Personal history of nicotine dependence; Z82.49 Family history of ischemic heart disease and other diseases of the circulatory system; Z80.0 Family history of malignant neoplasm of digestive organs; Z88.8 Allergy status to other drugs, medicaments and biological substances; Z79.899 Other long term (current) drug therapy; I25.2 Old myocardial infarction; Z98.61 Coronary angioplasty status; Z87.442 Personal history of urinary calculi

== ENCOUNTER → 2017-07-12 | Outpatient (CLI) | payer MEDICARE ==
[~2017-07-12] MED LIST changes: +ASPIRIN ADULT L81 M2 PO; +VITAMIN D-32000 UNIT PO
== END | disposition home or self-care (01) ==
LOC: RESCLI 02:14
DX: I11.0 Hypertensive heart disease with heart failure (principal); I50.32 Chronic diastolic (congestive) heart failure; I49.9 Cardiac arrhythmia, unspecified; E78.5 Hyperlipidemia, unspecified; E11.40 Type 2 diabetes mellitus with diabetic neuropathy, unspecified; K21.9 Gastro-esophageal reflux disease without esophagitis

== ENCOUNTER → 2017-10-12 | Outpatient (CLI) | payer MEDICARE | END | disposition home or self-care (01) | LOC: RESCLI 04:31 | DX: I11.0 Hypertensive heart disease with heart failure (principal); I50.32 Chronic diastolic (congestive) heart failure; E11.40 Type 2 diabetes mellitus with diabetic neuropathy, unspecified; C44.609 Unspecified malignant neoplasm of skin of left upper limb, including shoulder; K21.9 Gastro-esophageal reflux disease without esophagitis; L23.7 Allergic contact dermatitis due to plants, except food; I49.9 Cardiac arrhythmia, unspecified; Z88.8 Allergy status to other drugs, medicaments and biological substances ==

== ENCOUNTER 2017-12-07 15:33 | Inpatient (IN) | payer MEDICARE ==
[~2017-12-07] VITALS: Ht 170.2 cm; Wt 121.1 kg
--- NOTE | ~2017-12-07 | EKG ---
[place], [place] ELECTROCARDIOGRAM REPORT NAME: CONTRERAS CARDOZO UNIT #: [id number] ROOM: 503 DOCTOR: ALLIE DRAFT REPORT BIRTHDATE: [birth year] [facility] Test Date: 2017-12-07 Test Time: 16:01:10 Pat Name: CONTRERAS CARDOZO Department: Room: [facility] Gender: M Email Marketing Manager: : 1955 Requested By: MEREDITH DANIELLE Order Number: [id number] Reading MD: Bryan Mccall MD Measurements Intervals [place] Rate: 57 P: 54 NM: 203 QRS: 32 QRSD: 98 T: 5 QT: 406 QTc: 396 Interpretive Statements Sinus rhythm Electronically Signed On 12-07-2017 20:40:49 PDT by Bryan Mccall MD CM:EKGRPT:ELECTROCARDIOGRAM REPORT 1601 MEREDITH DANIELLE EPIPHANY DRAFT REPORT MEREDITH DANIELLE
[2017-12-07 15:36] VITALS: BP 127/66
[2017-12-07 16:06] LABS: BASO % 0.2 % (0.0-1.0); EOS # 0.2 10*3/uL (0.0-0.4); HEMATOCRIT 35.6 % (42.0-52.0); HEMOGLOBIN 12.2 g/dl (14.0-18.0); LYMPH # 1.8 10*3/uL (1.3-4.4); LYMPH % 20.8 % (27.0-41.0); MEAN CELL VOLUME 87.7 fl (80.0-94.0); MEAN CORPUSCULAR HGB CONC 34.3 g/dl (33.0-37.0); MEAN PLATELET VOLUME 10.1 fl (9.6-12.3); MONO # 0.4 10*3/uL (0.1-1.0); MONO % 5.1 % (3.0-9.0); NEUT # 6.1 10*3/uL (2.3-7.9); NEUT % 71.7 % (47.0-73.0); PLATELET COUNT AUTOMATED 156 10*3/uL (130-400); RED BLOOD COUNT 4.06 10*6/uL (4.50-5.90); RED CELL DISTRI WIDTH 13.6 % (0-14.5); WHITE BLOOD COUNT 8.5 10*3/uL (4.8-10.8)
[2017-12-07 16:14] LABS: ACT PARTIAL THROMBO TIME 22.1 SECONDS (20.8-31.5)
[2017-12-07 16:20] LABS: ALBUMIN 3.8 gm/dl (3.1-4.5); ALKALINE PHOSPHATASE 74 U/L (45-117); BUN 14 mg/dl (7-24); CHLORIDE 104 mmol/L (98-107); CREATININE 0.83 mg/dL (0.70-1.30); POTASSIUM 3.3 mmol/L (3.5-5.1); SGOT/AST 9 IU/L (3-35); SGPT/ALT 25 U/L (12-78); SODIUM 140 mmol/L (136-145); TOTAL PROTEIN 6.9 gm/dL (6.4-8.2)
[2017-12-07 17:25] LABS: BILIRUBIN NEGATIVE (NEGATIVE); BLOOD NEGATIVE (NEGATIVE); CLARITY CLEAR (CLEAR); COLOR YELLOW (YELLOW); GLUCOSE TRACE (NEGATIVE); KETONE NEGATIVE (NEGATIVE); LEUKO ESTERASE TRACE (NEGATIVE); NITRITE NEGATIVE (NEGATIVE); PH 5.5 (5.0-9.0); UROBILINOGEN 0.2 E.U./dl (0.2-1.0)
[2017-12-07 17:32] LABS: URINE AMPHETAMINES < 1000 (1000ng/ml); URINE BARBITURATES < 200 (200ng/ml); URINE BENZODIAZEPINES < 200 (200ng/ml); URINE CANNABINOIDS (THC) < 50 (50ng/ml); URINE COCAINE < 300 (300ng/ml); URINE METHADONE < 300 (300ng/ml); URINE OPIATES < 300 (300ng/ml); URINE PHENCYCLIDINE < 25 (25ng/ml)
[2017-12-07 17:42] LABS: EPITHELIAL CELLS 0-2
[2017-12-07 18:30] VITALS: BP 140/72
[2017-12-07 18:56] LABS: TROPONIN I < 0.015 ng/ml (<0.045)
[2017-12-07 20:00] VITALS: BP 138/79
[2017-12-07] MEDS ORDERED: TIMOLOL MALEATE5 M7 OP (20:06)
[2017-12-07] MEDS ORDERED: XALATAN 0.005%2.5 ML OPH (20:11)
[2017-12-08] VITALS: BP 143/75
[2017-12-08 06:05] LABS: BUN 14 mg/dl (7-24); CHLORIDE 104 mmol/L (98-107); CHOLESTEROL 101 mg/dL (<200); CREATININE 0.85 mg/dL (0.70-1.30); FREE T4 0.81 ng/dl (0.76-1.46); HDL CHOLESTEROL 34 mg/dl (40-60); LDL CHOLESTEROL 23 mg/dL (9-159); PHOSPHOROUS 3.3 mg/dL (2.5-4.9); POTASSIUM 3.4 mmol/L (3.5-5.1); SODIUM 142 mmol/L (136-145); TRIGLYCERIDES 220 mg/dl (<150); VLDL CHOLESTEROL 44 mg/dL (6-40)
[2017-12-08 06:11] LABS: THYROID STIM HORMONE (HS) 0.782 uIU/ml (0.358-4.75)
[2017-12-08 06:23] LABS: BASO % 0.1 % (0.0-1.0); EOS # 0.2 10*3/uL (0.0-0.4); EOS % 2.4 % (1.0-4.0); HEMATOCRIT 35.6 % (42.0-52.0); HEMOGLOBIN 11.8 g/dl (14.0-18.0); LYMPH # 1.9 10*3/uL (1.3-4.4); MEAN CELL VOLUME 88.8 fl (80.0-94.0); MEAN CORPUSCULAR HGB 29.4 pg (27.0-31.0); MEAN CORPUSCULAR HGB CONC 33.1 g/dl (33.0-37.0); MEAN PLATELET VOLUME 10.6 fl (9.6-12.3); MONO # 0.4 10*3/uL (0.1-1.0); MONO % 5.3 % (3.0-9.0); NEUT # 4.6 10*3/uL (2.3-7.9); NEUT % 64.9 % (47.0-73.0); PLATELET COUNT AUTOMATED 150 10*3/uL (130-400); RED BLOOD COUNT 4.01 10*6/uL (4.50-5.90); RED CELL DISTRI WIDTH 13.5 % (0-14.5)
[2017-12-08 06:38] LABS: VITAMIN D, 25-HYDROXY 27.7 ng/mL (30-100)
[2017-12-08 08:00] VITALS: BP 121/76
[2017-12-08 12:00] VITALS: BP 143/80
[2017-12-08 16:00] VITALS: BP 142/75
[2017-12-08 20:00] VITALS: BP 141/80
[2017-12-09] VITALS: BP 132/78
[2017-12-09 06:19] LABS: BUN 15 mg/dl (7-24); CHLORIDE 105 mmol/L (98-107); CREATININE 0.79 mg/dL (0.70-1.30); POTASSIUM 3.5 mmol/L (3.5-5.1); SODIUM 142 mmol/L (136-145)
[2017-12-09 08:00] VITALS: BP 140/80
[2017-12-09 12:00] VITALS: BP 129/74
== END 2017-12-09 14:23 | disposition home or self-care (01) | DRG 312 ==
LOC: ED 15:33 → 5E 18:05 → EDHOLD 18:05 → 5E 18:18
PROVIDERS: Internal Medicine; Nurse Practitioner
DX: R55 Syncope and collapse (principal); D68.59 Other primary thrombophilia; I50.32 Chronic diastolic (congestive) heart failure; I11.0 Hypertensive heart disease with heart failure; E11.65 Type 2 diabetes mellitus with hyperglycemia; D64.9 Anemia, unspecified; E55.9 Vitamin D deficiency, unspecified; R00.1 Bradycardia, unspecified; E87.6 Hypokalemia; E66.09 Other obesity due to excess calories; E78.5 Hyperlipidemia, unspecified; F32.9 Major depressive disorder, single episode, unspecified; K21.9 Gastro-esophageal reflux disease without esophagitis; I25.10 Atherosclerotic heart disease of native coronary artery without angina pectoris; F17.200 Nicotine dependence, unspecified, uncomplicated; Z79.4 Long term (current) use of insulin; Z82.49 Family history of ischemic heart disease and other diseases of the circulatory system; Z68.33 Body mass index [BMI] 33.0-33.9, adult; Z71.6 Tobacco abuse counseling; Z80.0 Family history of malignant neoplasm of digestive organs; Z88.8 Allergy status to other drugs, medicaments and biological substances; Z79.899 Other long term (current) drug therapy; Z86.73 Personal history of transient ischemic attack (TIA), and cerebral infarction without residual deficits

== ENCOUNTER → 2018-03-04 | Outpatient (CLI) | payer MEDICARE ==
[~2018-03-04] MED LIST changes: +TIMOLOL MALEATE5 M7 OP; +XALATAN 0.005%2.5 ML OPH
== END | disposition home or self-care (01) ==
LOC: RESCLI 00:58
DX: E11.69 Type 2 diabetes mellitus with other specified complication (principal); E78.5 Hyperlipidemia, unspecified; G62.9 Polyneuropathy, unspecified; I10 Essential (primary) hypertension; G89.29 Other chronic pain; J30.2 Other seasonal allergic rhinitis; F32.9 Major depressive disorder, single episode, unspecified; G47.00 Insomnia, unspecified; E56.9 Vitamin deficiency, unspecified; E66.9 Obesity, unspecified; Z79.899 Other long term (current) drug therapy; Z79.4 Long term (current) use of insulin; Z88.8 Allergy status to other drugs, medicaments and biological substances

== ENCOUNTER 2018-06-14 15:49 | Emergency (ER) | payer MEDICARE ==
[~2018-06-14] VITALS: Ht 170.1 cm; Wt 111.1 kg
--- NOTE | ~2018-06-14 | EKG ---
[place], [place] ELECTROCARDIOGRAM REPORT NAME: CONTRERAS CARDOZO UNIT #: [id number] ROOM: DOCTOR: EPIPHANY DRAFT REPORT BIRTHDATE: [address] [facility] Test Date: 2018-06-14 Test Time: 16:53:58 Pat Name: CONTRERAS CARDOZO Department: ER Room: 12 Gender: M Supervisor Filling And Packing: Iris Urrutia : 1955 Requested By: LYNDA JOHNSON Order Number: [id number] Reading MD: Bryan Mccall MD Measurements Intervals [place] Rate: 54 P: 32 [place]: 210 QRS: 8 QRSD: 104 T: 26 QT: 431 QTc: 409 Interpretive Statements Sinus rhythm Compared to ECG 12/07/2017 16:01:10 No significant changes Electronically Signed On 06-16-2018 7:40:48 PST by Bryan Mccall MD CM:EKGRPT:ELECTROCARDIOGRAM REPORT 1653 [id number] LYNDA JOHNSON MD EPIPHALICIA DRAFT REPORT LYNDA JOHNSON MD
[2018-06-14 16:01] LABS: BASO % 0.2 % (0.0-1.0); EOS # 0.3 10*3/uL (0.0-0.4); EOS % 2.6 % (1.0-4.0); HEMATOCRIT 39.7 % (42.0-52.0); HEMOGLOBIN 13.7 g/dl (14.0-18.0); LYMPH # 2.4 10*3/uL (1.3-4.4); LYMPH % 25.3 % (27.0-41.0); MEAN CELL VOLUME 88.2 fl (80.0-94.0); MEAN CORPUSCULAR HGB 30.4 pg (27.0-31.0); MEAN CORPUSCULAR HGB CONC 34.5 g/dl (33.0-37.0); MEAN PLATELET VOLUME 9.8 fl (9.6-12.3); MONO # 0.6 10*3/uL (0.1-1.0); MONO % 6.3 % (3.0-9.0); NEUT # 6.2 10*3/uL (2.3-7.9); NEUT % 65.2 % (47.0-73.0); PLATELET COUNT AUTOMATED 195 10*3/uL (130-400); RED CELL DISTRI WIDTH 13.7 % (0-14.5); WHITE BLOOD COUNT 9.5 10*3/uL (4.8-10.8)
[2018-06-14 16:18] LABS: ALBUMIN 4.1 gm/dl (3.1-4.5); ALKALINE PHOSPHATASE 78 U/L (45-117); BUN 16 mg/dl (7-24); CHLORIDE 110 mmol/L (98-107); CREATININE 0.86 mg/dL (0.70-1.30); POTASSIUM 3.8 mmol/L (3.5-5.1); SGOT/AST 15 IU/L (3-35); SGPT/ALT 38 U/L (12-78); SODIUM 142 mmol/L (136-145); TOTAL PROTEIN 7.6 gm/dL (6.4-8.2)
[2018-06-14 16:31] LABS: ETHYL ALCOHOL < 3.0 mg/dl (<3)
[2018-06-14 16:47] LABS: BILIRUBIN NEGATIVE (NEGATIVE); BLOOD NEGATIVE (NEGATIVE); CLARITY SL CLOUDY (CLEAR); COLOR YELLOW (YELLOW); GLUCOSE 3+ (NEGATIVE); KETONE NEGATIVE (NEGATIVE); LEUKO ESTERASE NEGATIVE (NEGATIVE); NITRITE NEGATIVE (NEGATIVE); SPECIFIC GRAVITY 1.015 (1.005-1.030); UROBILINOGEN 0.2 E.U./dl (0.2-1.0)
[2018-06-14 16:54] LABS: BACTERIA TRACE; EPITHELIAL CELLS 0-2; WBC 0-2 wbc/hpf (0-5)
== END 2018-06-14 17:10 | disposition left against medical advice (07) ==
LOC: ED 15:49
PROVIDERS: Emergency Medicine
DX: I10 Essential (primary) hypertension (principal); R07.9 Chest pain, unspecified; E11.9 Type 2 diabetes mellitus without complications; I25.10 Atherosclerotic heart disease of native coronary artery without angina pectoris; E78.5 Hyperlipidemia, unspecified; E66.9 Obesity, unspecified; K21.9 Gastro-esophageal reflux disease without esophagitis; I11.0 Hypertensive heart disease with heart failure; I50.9 Heart failure, unspecified; Z88.8 Allergy status to other drugs, medicaments and biological substances; Z79.4 Long term (current) use of insulin; Z79.899 Other long term (current) drug therapy; Z86.73 Personal history of transient ischemic attack (TIA), and cerebral infarction without residual deficits; Z87.891 Personal history of nicotine dependence

== ENCOUNTER 2018-07-01 12:33 | Emergency (ER) | payer MEDICARE ==
--- NOTE | ~2018-07-01 | EKG ---
[place], [place] ELECTROCARDIOGRAM REPORT NAME: CONTRERAS CARDOZO UNIT #: [id number] ROOM: DOCTOR: ALLIE DRAFT REPORT BIRTHDATE: [birth year] [facility] Test Date: 2018-07-01 Test Time: 12:56:04 Pat Name: CONTRERAS CARDOZO Department: Patient ID: ELOH- Room: Gender: Infusion Pharmacist: : 1955 Requested By: LYNDA JOHNSON Order Number: [id number] Reading MD: Measurements Intervals [place] Rate: 82 P: 39 [place]: 200 QRS: 8 QRSD: 94 T: 7 QT: 382 QTc: 446 Interpretive Statements Sinus rhythm Inferior infarct, old Compared to ECG 05/15/2018 17:47:34 Myocardial infarct finding now present T-wave abnormality no longer present CM:EKGRPT:ELECTROCARDIOGRAM REPORT [id number] [facility] REPORT LYNDA JOHNSON MD
--- NOTE | ~2018-07-01 | EKG ---
[place], [place] ELECTROCARDIOGRAM REPORT NAME: CONTRERAS CARDOZO UNIT #: [id number] ROOM: DOCTOR: EPIPHANY DRAFT REPORT BIRTHDATE: [birth year] [facility] Test Date: 2018-07-01 Test Time: 12:56:04 Pat Name: CONTRERAS CARDOZO Department: Room: Gender: Service Tech: : 1955 Requested By: LYNDA JOHNSON Order Number: [id number] Reading MD: Bryan Mccall MD Measurements Intervals [place] Rate: 82 P: 39 [place]: 200 QRS: 8 QRSD: 94 T: 7 QT: 382 QTc: 446 Interpretive Statements Sinus rhythm Inferior infarct, old Compared to ECG 06/14/2018 16:53:58 No significant change Electronically Signed On 07-01-2018 16:22:21 PST by Bryan Mccall MD CM:EKGRPT:ELECTROCARDIOGRAM REPORT 1256 1622 LYNDA JOHNSON MD EPIPHALICIA DRAFT REPORT LYNDA JOHNSON MD
[2018-07-01 13:06] LABS: BASO % 0.2 % (0.0-1.0); EOS # 0.2 10*3/uL (0.0-0.4); EOS % 1.3 % (1.0-4.0); HEMOGLOBIN 14.2 g/dl (14.0-18.0); LYMPH # 1.9 10*3/uL (1.3-4.4); LYMPH % 13.6 % (27.0-41.0); MEAN CELL VOLUME 88.8 fl (80.0-94.0); MEAN CORPUSCULAR HGB CONC 33.8 g/dl (33.0-37.0); MEAN PLATELET VOLUME 10.1 fl (9.6-12.3); MONO # 0.7 10*3/uL (0.1-1.0); MONO % 4.6 % (3.0-9.0); NEUT # 11.3 10*3/uL (2.3-7.9); NEUT % 79.9 % (47.0-73.0); PLATELET COUNT AUTOMATED 217 10*3/uL (130-400); RED BLOOD COUNT 4.73 10*6/uL (4.50-5.90); RED CELL DISTRI WIDTH 13.9 % (0-14.5); WHITE BLOOD COUNT 14.1 10*3/uL (4.8-10.8)
[2018-07-01 13:15] LABS: ACT PARTIAL THROMBO TIME 22.4 SECONDS (20.8-31.5)
[2018-07-01 13:30] LABS: ALBUMIN 3.8 gm/dl (3.1-4.5); ALKALINE PHOSPHATASE 89 U/L (45-117); BUN 19 mg/dl (7-24); CHLORIDE 108 mmol/L (98-107); CREATININE 0.99 mg/dL (0.70-1.30); POTASSIUM 3.7 mmol/L (3.5-5.1); SGOT/AST 16 IU/L (3-35); SGPT/ALT 31 U/L (12-78); SODIUM 141 mmol/L (136-145)
[2018-07-01 13:41] LABS: TROPONIN I < 0.015 ng/ml (<0.045)
== END 2018-07-01 16:00 | disposition short-term general hospital (02) ==
LOC: ED
PROVIDERS: Emergency Medicine
DX: R53.1 Weakness (principal); R20.0 Anesthesia of skin; R47.02 Dysphasia; R07.89 Other chest pain; I11.0 Hypertensive heart disease with heart failure; I50.9 Heart failure, unspecified; E11.9 Type 2 diabetes mellitus without complications; D68.59 Other primary thrombophilia; I25.10 Atherosclerotic heart disease of native coronary artery without angina pectoris; K21.9 Gastro-esophageal reflux disease without esophagitis; E78.5 Hyperlipidemia, unspecified; E66.9 Obesity, unspecified; F17.210 Nicotine dependence, cigarettes, uncomplicated; Z86.73 Personal history of transient ischemic attack (TIA), and cerebral infarction without residual deficits; Z87.442 Personal history of urinary calculi; Z88.8 Allergy status to other drugs, medicaments and biological substances; Z79.84 Long term (current) use of oral hypoglycemic drugs; Z79.899 Other long term (current) drug therapy

== ENCOUNTER → 2018-09-27 | Outpatient (CLI) | payer MEDICARE ==
[~2018-09-27] MED LIST changes: +NORCO 5-325 TA1 EACH PO; +XARELTO2.5 MG PO
== END | disposition home or self-care (01) ==
LOC: RESCLI 01:01
DX: Z09 Encounter for follow-up examination after completed treatment for conditions other than malignant neoplasm (principal); I25.2 Old myocardial infarction; I10 Essential (primary) hypertension; E11.9 Type 2 diabetes mellitus without complications; Z79.899 Other long term (current) drug therapy; Z88.8 Allergy status to other drugs, medicaments and biological substances

== ENCOUNTER 2018-10-28 23:25 | Emergency (ER) | payer MEDICARE ==
[~2018-10-28] VITALS: Ht 170.1 cm; Wt 108.9 kg
[~2018-10-28 23:25] MED LIST changes: -NORCO 5-325 TA1 EACH PO; -XARELTO2.5 MG PO
[2018-10-28] MEDS ORDERED: XARELTO2.5 MG PO (23:47)
[2018-10-29] MEDS ORDERED: NORCO 5-325 TA1 EACH PO (02:09)
== END 2018-10-29 02:24 | disposition home or self-care (01) ==
LOC: ED 23:25
DX: S52.041A Displaced fracture of coronoid process of right ulna, initial encounter for closed fracture (principal); E66.9 Obesity, unspecified; E78.5 Hyperlipidemia, unspecified; K21.9 Gastro-esophageal reflux disease without esophagitis; E11.65 Type 2 diabetes mellitus with hyperglycemia; I11.0 Hypertensive heart disease with heart failure; I50.9 Heart failure, unspecified; F32.9 Major depressive disorder, single episode, unspecified; I25.10 Atherosclerotic heart disease of native coronary artery without angina pectoris; Z87.891 Personal history of nicotine dependence; Z98.890 Other specified postprocedural states; Z86.73 Personal history of transient ischemic attack (TIA), and cerebral infarction without residual deficits; Z79.4 Long term (current) use of insulin; Z79.899 Other long term (current) drug therapy; Z88.8 Allergy status to other drugs, medicaments and biological substances; W18.49XA Other slipping, tripping and stumbling without falling, initial encounter; Y93.89 Activity, other specified; Y92.098 Other place in other non-institutional residence as the place of occurrence of the external cause; Y99.9 Unspecified external cause status

== ENCOUNTER → 2018-11-01 | Outpatient (CLI) | payer MEDICARE ==
[~2018-11-01] MED LIST changes: +NORCO 5-325 TA1 EACH PO; +XARELTO2.5 MG PO
== END | disposition home or self-care (01) ==
LOC: RESCLI 00:19
DX: E66.9 Obesity, unspecified (principal); R00.1 Bradycardia, unspecified; F32.9 Major depressive disorder, single episode, unspecified; G62.9 Polyneuropathy, unspecified; J30.2 Other seasonal allergic rhinitis; I10 Essential (primary) hypertension; E11.69 Type 2 diabetes mellitus with other specified complication; I63.40 Cerebral infarction due to embolism of unspecified cerebral artery; E55.9 Vitamin D deficiency, unspecified; E78.5 Hyperlipidemia, unspecified; E87.6 Hypokalemia; Z79.899 Other long term (current) drug therapy; Z88.8 Allergy status to other drugs, medicaments and biological substances

== ENCOUNTER → 2018-11-21 | Outpatient (CLI) | payer OTHER | END | disposition home or self-care (01) | LOC: RAD 15:31 | DX: M25.521 Pain in right elbow (principal); Z91.81 History of falling ==

== ENCOUNTER → 2018-11-22 | Outpatient (CLI) | payer MEDICARE | END | disposition home or self-care (01) | LOC: ORTHO 02:14 | DX: M25.531 Pain in right wrist (principal); W19.XXXA Unspecified fall, initial encounter ==

== ENCOUNTER → 2018-11-30 | Outpatient (CLI) | payer OTHER | END | disposition home or self-care (01) | LOC: CT 07:38 | DX: M25.521 Pain in right elbow (principal) ==

== ENCOUNTER → 2018-12-27 | Outpatient (CLI) | payer MEDICARE ==
[2018-12-27 15:02] LABS: BUN 21 mg/dl (7-24); CHLORIDE 110 mmol/L (98-107); CREATININE 0.89 mg/dL (0.70-1.30); SODIUM 140 mmol/L (136-145)
== END | disposition home or self-care (01) ==
LOC: RESCLI 00:59
PROVIDERS: Internal Medicine
DX: Z12.5 Encounter for screening for malignant neoplasm of prostate (principal); E87.6 Hypokalemia; N52.9 Male erectile dysfunction, unspecified; F32.9 Major depressive disorder, single episode, unspecified; G62.9 Polyneuropathy, unspecified; J30.2 Other seasonal allergic rhinitis; I10 Essential (primary) hypertension; E11.69 Type 2 diabetes mellitus with other specified complication; I63.40 Cerebral infarction due to embolism of unspecified cerebral artery; E78.5 Hyperlipidemia, unspecified; E66.9 Obesity, unspecified; F17.200 Nicotine dependence, unspecified, uncomplicated; Z79.899 Other long term (current) drug therapy

== ENCOUNTER → 2019-01-24 | Outpatient (CLI) | payer MEDICARE | END | disposition home or self-care (01) | LOC: RESCLI 13:12 | DX: L23.7 Allergic contact dermatitis due to plants, except food (principal); Z79.899 Other long term (current) drug therapy ==

== ENCOUNTER → 2019-02-02 | Outpatient (CLI) | payer MEDICARE | END | disposition home or self-care (01) | LOC: RESCLI 01:52 | DX: J44.9 Chronic obstructive pulmonary disease, unspecified (principal); E11.9 Type 2 diabetes mellitus without complications; E66.9 Obesity, unspecified; I10 Essential (primary) hypertension; Z71.6 Tobacco abuse counseling; Z72.0 Tobacco use; Z68.39 Body mass index [BMI] 39.0-39.9, adult; Z79.899 Other long term (current) drug therapy ==

== ENCOUNTER 2019-04-24 16:11 | Emergency (ER) | payer OTHER ==
[~2019-04-24] VITALS: Ht 170.1 cm; Wt 101.2 kg
[2019-04-24 18:29] LABS: BASO % 0.4 % (0.0-1.0); EOS # 0.3 10*3/uL (0.0-0.4); EOS % 4.1 % (1.0-4.0); HEMATOCRIT 38.1 % (42.0-52.0); HEMOGLOBIN 12.9 g/dl (14.0-18.0); LYMPH # 2.1 10*3/uL (1.3-4.4); LYMPH % 25.6 % (27.0-41.0); MEAN CELL VOLUME 90.5 fl (80.0-94.0); MEAN CORPUSCULAR HGB 30.6 pg (27.0-31.0); MEAN CORPUSCULAR HGB CONC 33.9 g/dl (33.0-37.0); MEAN PLATELET VOLUME 9.9 fl (9.6-12.3); MONO # 0.5 10*3/uL (0.1-1.0); NEUT # 5.3 10*3/uL (2.3-7.9); NEUT % 63.4 % (47.0-73.0); PLATELET COUNT AUTOMATED 176 10*3/uL (130-400); RED BLOOD COUNT 4.21 10*6/uL (4.50-5.90); RED CELL DISTRI WIDTH 13.2 % (0-14.5); WHITE BLOOD COUNT 8.3 10*3/uL (4.8-10.8)
[2019-04-24 18:38] LABS: ACT PARTIAL THROMBO TIME 22.5 SECONDS (20.0-32.1); INTERNATIONAL NORM RATIO 0.9 (2.0-3.5)
[2019-04-24 18:43] LABS: ALBUMIN 3.8 gm/dl (3.1-4.5); ALKALINE PHOSPHATASE 99 U/L (45-117); BUN 14 mg/dl (7-24); CHLORIDE 108 mmol/L (98-107); LIPASE 129 U/L (73-393); POTASSIUM 3.4 mmol/L (3.5-5.1); SGOT/AST 15 IU/L (3-35); SGPT/ALT 33 U/L (12-78); SODIUM 142 mmol/L (136-145); TOTAL PROTEIN 7.6 gm/dL (6.4-8.2)
[2019-04-24 18:44] LABS: TROPONIN I < 0.015 ng/ml (<0.045)
[2019-04-24] MEDS ORDERED: NORCO 5-325 TA1 EACH PO (21:09)
== END 2019-04-24 21:12 | disposition home or self-care (01) ==
LOC: ED 16:11
PROVIDERS: Physician Assistant
DX: S22.31XA Fracture of one rib, right side, initial encounter for closed fracture (principal); F17.210 Nicotine dependence, cigarettes, uncomplicated; Z88.8 Allergy status to other drugs, medicaments and biological substances; Z79.899 Other long term (current) drug therapy; V89.2XXA Person injured in unspecified motor-vehicle accident, traffic, initial encounter; Y93.89 Activity, other specified; Y92.89 Other specified places as the place of occurrence of the external cause; Y99.8 Other external cause status

== ENCOUNTER → 2019-05-18 | Outpatient (CLI) | payer MEDICARE | END | disposition home or self-care (01) | LOC: RESCLI 01:32 | DX: E11.69 Type 2 diabetes mellitus with other specified complication (principal); E55.9 Vitamin D deficiency, unspecified; I10 Essential (primary) hypertension; K21.9 Gastro-esophageal reflux disease without esophagitis; H40.9 Unspecified glaucoma; I25.10 Atherosclerotic heart disease of native coronary artery without angina pectoris; R68.89 Other general symptoms and signs; G89.29 Other chronic pain; N52.9 Male erectile dysfunction, unspecified; F32.9 Major depressive disorder, single episode, unspecified; G62.9 Polyneuropathy, unspecified; J30.2 Other seasonal allergic rhinitis; I63.40 Cerebral infarction due to embolism of unspecified cerebral artery; E78.5 Hyperlipidemia, unspecified; M54.2 Cervicalgia; E66.9 Obesity, unspecified; Z79.899 Other long term (current) drug therapy; Z88.8 Allergy status to other drugs, medicaments and biological substances ==

== ENCOUNTER 2019-06-03 15:54 | Emergency (ER) | payer MEDICARE | END 2019-06-03 18:01 | disposition home or self-care (01) | LOC: ED 15:54 | DX: S46.911A Strain of unspecified muscle, fascia and tendon at shoulder and upper arm level, right arm, initial encounter (principal); I25.2 Old myocardial infarction; I25.10 Atherosclerotic heart disease of native coronary artery without angina pectoris; E11.9 Type 2 diabetes mellitus without complications; Z87.891 Personal history of nicotine dependence; Z86.73 Personal history of transient ischemic attack (TIA), and cerebral infarction without residual deficits; Z87.442 Personal history of urinary calculi; Z88.8 Allergy status to other drugs, medicaments and biological substances; Z79.899 Other long term (current) drug therapy; Z98.61 Coronary angioplasty status; Z98.890 Other specified postprocedural states; W00.2XXA Other fall from one level to another due to ice and snow, initial encounter; Y93.89 Activity, other specified; Y92.89 Other specified places as the place of occurrence of the external cause; Y99.8 Other external cause status ==

== ENCOUNTER → 2019-06-22 | Outpatient (CLI) | payer MEDICARE | END | disposition home or self-care (01) | LOC: RESCLI 00:30 | DX: N40.1 Benign prostatic hyperplasia with lower urinary tract symptoms (principal); M25.561 Pain in right knee; G89.29 Other chronic pain; F32.9 Major depressive disorder, single episode, unspecified; G62.9 Polyneuropathy, unspecified; E11.69 Type 2 diabetes mellitus with other specified complication; I10 Essential (primary) hypertension; E66.9 Obesity, unspecified; I63.40 Cerebral infarction due to embolism of unspecified cerebral artery; I48.91 Unspecified atrial fibrillation; F17.200 Nicotine dependence, unspecified, uncomplicated; R35.0 Frequency of micturition; Z79.899 Other long term (current) drug therapy; Z88.8 Allergy status to other drugs, medicaments and biological substances ==

== ENCOUNTER → 2020-01-10 | Outpatient (CLI) | payer OTHER | END | disposition home or self-care (01) | LOC: MRI 14:42 | PROVIDERS: ATTEND Family Medicine | DX: S92.322D Displaced fracture of second metatarsal bone, left foot, subsequent encounter for fracture with routine healing (principal); R60.0 Localized edema; X58.XXXD Exposure to other specified factors, subsequent encounter ==

== ENCOUNTER 2020-03-06 12:11 | Emergency (ER) | payer MEDICARE ==
[~2020-03-06] VITALS: Ht 170.1 cm; Wt 111.1 kg
[2020-03-06 12:20] VITALS: BP 137/76
[2020-03-06 12:40] LABS: BASO % 0.2 % (0.0-1.0); EOS # 0.2 10*3/uL (0.0-0.4); EOS % 2.2 % (1.0-4.0); HEMATOCRIT 39.1 % (42.0-52.0); LYMPH # 1.7 10*3/uL (1.3-4.4); LYMPH % 21.5 % (27.0-41.0); MEAN CELL VOLUME 87.3 fl (80.0-94.0); MEAN CORPUSCULAR HGB 29.2 pg (27.0-31.0); MEAN CORPUSCULAR HGB CONC 33.5 g/dl (33.0-37.0); MEAN PLATELET VOLUME 10.3 fl (9.6-12.3); MONO # 0.5 10*3/uL (0.1-1.0); MONO % 5.6 % (3.0-9.0); NEUT # 5.6 10*3/uL (2.3-7.9); NEUT % 70.1 % (47.0-73.0); PLATELET COUNT AUTOMATED 181 10*3/uL (130-400); RED BLOOD COUNT 4.48 10*6/uL (4.50-5.90); RED CELL DISTRI WIDTH 13.2 % (0-14.5)
[2020-03-06 12:44] VITALS: BP 127/80
[2020-03-06 12:57] LABS: ALBUMIN 3.8 gm/dl (3.1-4.5); ALKALINE PHOSPHATASE 78 U/L (45-117); BUN 19 mg/dl (7-24); CHLORIDE 100 mmol/L (98-107); CREATININE 1.06 mg/dL (0.70-1.30); POTASSIUM 3.5 mmol/L (3.5-5.1); SGOT/AST 10 IU/L (3-35); SGPT/ALT 21 U/L (12-78); SODIUM 135 mmol/L (136-145); TOTAL PROTEIN 7.4 gm/dL (6.4-8.2)
[2020-03-06 13:01] LABS: TROPONIN I < 0.015 ng/ml (<0.045)
[2020-03-06 15:22] VITALS: BP 122/84
[2020-03-06 16:38] VITALS: BP 116/74
[2020-03-06 17:37] VITALS: BP 115/70
[2020-03-06 18:43] VITALS: BP 106/57
== END 2020-03-06 21:29 | disposition short-term general hospital (02) ==
LOC: ED 12:11 → EDHOLD 14:29 → ED 21:29
PROVIDERS: Emergency Medicine
DX: R07.9 Chest pain, unspecified (principal); R53.1 Weakness; Z88.8 Allergy status to other drugs, medicaments and biological substances; Z79.899 Other long term (current) drug therapy; Z79.84 Long term (current) use of oral hypoglycemic drugs

== ENCOUNTER 2020-03-29 15:29 | Emergency (ER) | payer MEDICARE ==
[~2020-03-29] VITALS: Ht 175.3 cm; Wt 113.4 kg
[2020-03-29 16:08] LABS: BASO % 0.2 % (0.0-1.0); EOS # 0.3 10*3/uL (0.0-0.4); EOS % 3.5 % (1.0-4.0); HEMATOCRIT 36.4 % (42.0-52.0); LYMPH # 2.6 10*3/uL (1.3-4.4); LYMPH % 27.8 % (27.0-41.0); MEAN CELL VOLUME 87.9 fl (80.0-94.0); MEAN CORPUSCULAR HGB 29.7 pg (27.0-31.0); MEAN CORPUSCULAR HGB CONC 33.8 g/dl (33.0-37.0); MEAN PLATELET VOLUME 10.4 fl (9.6-12.3); MONO # 0.5 10*3/uL (0.1-1.0); NEUT # 5.9 10*3/uL (2.3-7.9); NEUT % 63.2 % (47.0-73.0); PLATELET COUNT AUTOMATED 169 10*3/uL (130-400); RED BLOOD COUNT 4.14 10*6/uL (4.50-5.90); RED CELL DISTRI WIDTH 13.4 % (0-14.5); WHITE BLOOD COUNT 9.3 10*3/uL (4.8-10.8)
[2020-03-29 16:32] LABS: ALBUMIN 3.9 gm/dl (3.1-4.5); ALKALINE PHOSPHATASE 74 U/L (45-117); BUN 19 mg/dl (7-24); CHLORIDE 104 mmol/L (98-107); CREATININE 0.94 mg/dL (0.70-1.30); POTASSIUM 3.5 mmol/L (3.5-5.1); SGOT/AST 11 IU/L (3-35); SGPT/ALT 25 U/L (12-78); SODIUM 139 mmol/L (136-145); TOTAL PROTEIN 7.3 gm/dL (6.4-8.2)
== END 2020-03-29 17:55 | disposition home or self-care (01) ==
LOC: ED 15:29
PROVIDERS: Emergency Medicine
DX: R55 Syncope and collapse (principal); Z88.8 Allergy status to other drugs, medicaments and biological substances; Z79.899 Other long term (current) drug therapy; Z79.84 Long term (current) use of oral hypoglycemic drugs; Z79.2 Long term (current) use of antibiotics

== ENCOUNTER 2020-05-24 18:00 | Emergency (ER) | payer OTHER ==
[~2020-05-24] VITALS: Wt 108.9 kg
[2020-05-24 19:34] LABS: BASO % 0.2 % (0.0-1.0); EOS # 0.2 10*3/uL (0.0-0.4); EOS % 2.1 % (1.0-4.0); HEMATOCRIT 39.3 % (42.0-52.0); LYMPH # 2.3 10*3/uL (1.3-4.4); LYMPH % 22.7 % (27.0-41.0); MEAN CELL VOLUME 87.5 fl (80.0-94.0); MEAN CORPUSCULAR HGB 29.6 pg (27.0-31.0); MEAN CORPUSCULAR HGB CONC 33.8 g/dl (33.0-37.0); MEAN PLATELET VOLUME 10.1 fl (9.6-12.3); MONO # 0.6 10*3/uL (0.1-1.0); MONO % 5.7 % (3.0-9.0); NEUT # 7.1 10*3/uL (2.3-7.9); NEUT % 68.9 % (47.0-73.0); PLATELET COUNT AUTOMATED 198 10*3/uL (130-400); RED BLOOD COUNT 4.49 10*6/uL (4.50-5.90); RED CELL DISTRI WIDTH 13.2 % (0-14.5); WHITE BLOOD COUNT 10.3 10*3/uL (4.8-10.8)
[2020-05-24 19:46] LABS: BILIRUBIN Negative (Negative); BLOOD Negative (Negative); CLARITY Clear (Clear); COLOR Yellow (Yellow); GLUCOSE 3+ (Negative); KETONE Trace (Negative); LEUKO ESTERASE Negative (Negative); NITRITE Negative (Negative); SPECIFIC GRAVITY >= 1.030 (1.001-1.030); UROBILINOGEN 0.2 E.U./dl (0.0-1.0)
[2020-05-24 19:56] LABS: ALKALINE PHOSPHATASE 77 U/L (45-117); BUN 28 mg/dl (7-24); CHLORIDE 103 mmol/L (98-107); CREATININE 1.19 mg/dL (0.70-1.30); POTASSIUM 3.8 mmol/L (3.5-5.1); SGOT/AST 8 IU/L (3-35); SGPT/ALT 26 U/L (12-78); SODIUM 138 mmol/L (136-145); TOTAL PROTEIN 7.7 gm/dL (6.4-8.2)
[2020-05-24 20:59] LABS: WBC 0-2 wbc/hpf (0-5)
[2020-05-24] MEDS ORDERED: ROBAXIN-750750 MG PO (21:05)
[2020-05-24] MEDS ORDERED: PREDNISONE20 M1 PO (21:05)
== END 2020-05-24 21:19 | disposition home or self-care (01) ==
LOC: ED 18:00
PROVIDERS: Nurse Practitioner Family
DX: S39.012A Strain of muscle, fascia and tendon of lower back, initial encounter (principal); E11.9 Type 2 diabetes mellitus without complications; F17.210 Nicotine dependence, cigarettes, uncomplicated; Z88.8 Allergy status to other drugs, medicaments and biological substances; Z79.899 Other long term (current) drug therapy; X58.XXXA Exposure to other specified factors, initial encounter; Y93.89 Activity, other specified; Y92.89 Other specified places as the place of occurrence of the external cause; Y99.8 Other external cause status

== ENCOUNTER → 2020-06-19 | Outpatient (CLI) | payer OTHER ==
[~2020-06-19] MED LIST changes: +PREDNISONE20 M1 PO; +ROBAXIN-750750 MG PO
== END | disposition home or self-care (01) ==
LOC: RESCLI 02:21
PROVIDERS: ATTEND Internal Medicine Nephrology
DX: J30.2 Other seasonal allergic rhinitis (principal); M25.539 Pain in unspecified wrist; M17.0 Bilateral primary osteoarthritis of knee; I10 Essential (primary) hypertension; G62.9 Polyneuropathy, unspecified; E55.9 Vitamin D deficiency, unspecified; E11.40 Type 2 diabetes mellitus with diabetic neuropathy, unspecified; E66.01 Morbid (severe) obesity due to excess calories; J44.1 Chronic obstructive pulmonary disease with (acute) exacerbation; G89.29 Other chronic pain; I50.32 Chronic diastolic (congestive) heart failure; N52.9 Male erectile dysfunction, unspecified; I48.91 Unspecified atrial fibrillation; E78.5 Hyperlipidemia, unspecified; I25.10 Atherosclerotic heart disease of native coronary artery without angina pectoris; F32.9 Major depressive disorder, single episode, unspecified; I49.9 Cardiac arrhythmia, unspecified; N40.1 Benign prostatic hyperplasia with lower urinary tract symptoms; N39.498 Other specified urinary incontinence; I63.40 Cerebral infarction due to embolism of unspecified cerebral artery; H40.9 Unspecified glaucoma; K21.9 Gastro-esophageal reflux disease without esophagitis; R53.82 Chronic fatigue, unspecified; R53.83 Other fatigue; Z79.899 Other long term (current) drug therapy; Z79.4 Long term (current) use of insulin; Z98.890 Other specified postprocedural states

== ENCOUNTER → 2020-10-02 | Outpatient (CLI) | payer OTHER | END | disposition home or self-care (01) | LOC: RESCLI 01:46 | PROVIDERS: ATTEND Internal Medicine Nephrology | DX: I11.0 Hypertensive heart disease with heart failure (principal); I50.32 Chronic diastolic (congestive) heart failure; J30.2 Other seasonal allergic rhinitis; G62.9 Polyneuropathy, unspecified; E55.9 Vitamin D deficiency, unspecified; E11.40 Type 2 diabetes mellitus with diabetic neuropathy, unspecified; E66.01 Morbid (severe) obesity due to excess calories; J44.1 Chronic obstructive pulmonary disease with (acute) exacerbation; G89.29 Other chronic pain; N52.9 Male erectile dysfunction, unspecified; I48.91 Unspecified atrial fibrillation; E78.5 Hyperlipidemia, unspecified; I25.10 Atherosclerotic heart disease of native coronary artery without angina pectoris; F32.9 Major depressive disorder, single episode, unspecified; I49.9 Cardiac arrhythmia, unspecified; N40.1 Benign prostatic hyperplasia with lower urinary tract symptoms; N39.498 Other specified urinary incontinence; I63.40 Cerebral infarction due to embolism of unspecified cerebral artery; H40.9 Unspecified glaucoma; K21.9 Gastro-esophageal reflux disease without esophagitis; R53.82 Chronic fatigue, unspecified; M17.0 Bilateral primary osteoarthritis of knee; M25.539 Pain in unspecified wrist; E11.69 Type 2 diabetes mellitus with other specified complication; R53.83 Other fatigue; Z88.0 Allergy status to penicillin; Z79.4 Long term (current) use of insulin; Z79.899 Other long term (current) drug therapy ==

== ENCOUNTER → 2020-12-05 | Day surgery (SDC) | payer OTHER ==
[2020-12-02 15:38] LABS: BASO % 0.1 % (0.0-1.0); EOS # 0.2 10*3/uL (0.0-0.4); EOS % 2.9 % (1.0-4.0); HEMATOCRIT 37.6 % (42.0-52.0); LYMPH # 1.9 10*3/uL (1.3-4.4); LYMPH % 27.9 % (27.0-41.0); MEAN CELL VOLUME 90.8 fl (80.0-94.0); MEAN CORPUSCULAR HGB 29.7 pg (27.0-31.0); MEAN CORPUSCULAR HGB CONC 32.7 g/dl (33.0-37.0); MEAN PLATELET VOLUME 10.3 fl (9.6-12.3); MONO # 0.4 10*3/uL (0.1-1.0); MONO % 6.3 % (3.0-9.0); NEUT # 4.3 10*3/uL (2.3-7.9); NEUT % 62.4 % (47.0-73.0); PLATELET COUNT AUTOMATED 193 10*3/uL (130-400); RED BLOOD COUNT 4.14 10*6/uL (4.50-5.90); RED CELL DISTRI WIDTH 13.9 % (0-14.5)
[2020-12-02 16:05] LABS: BUN 31 mg/dl (7-24); CHLORIDE 109 mmol/L (98-107); SODIUM 140 mmol/L (136-145)
[~2020-12-05] VITALS: Ht 170.1 cm; Wt 104.8 kg
[2020-12-05 07:28] VITALS: BP 150/95
[2020-12-05 09:05] VITALS: BP 119/75
[2020-12-05 09:18] VITALS: BP 112/85
[2020-12-05 09:35] VITALS: BP 132/77
== END | disposition home or self-care (01) ==
LOC: SDC 12-02 10:15 → LAB 00:38 → SDC 08:30 → LAB 10:15
PROVIDERS: ATTEND Orthopaedic Surgery
DX: G56.03 Carpal tunnel syndrome, bilateral upper limbs (principal); I10 Essential (primary) hypertension; E11.9 Type 2 diabetes mellitus without complications; I25.2 Old myocardial infarction; I25.10 Atherosclerotic heart disease of native coronary artery without angina pectoris; Z86.73 Personal history of transient ischemic attack (TIA), and cerebral infarction without residual deficits; F17.210 Nicotine dependence, cigarettes, uncomplicated; Z79.899 Other long term (current) drug therapy; Z98.890 Other specified postprocedural states; Z20.822 Contact with and (suspected) exposure to COVID-19

== ENCOUNTER → 2021-01-24 | Outpatient (CLI) | payer OTHER | END | disposition home or self-care (01) | LOC: RESCLI 14:36 | PROVIDERS: ATTEND Internal Medicine | DX: E66.01 Morbid (severe) obesity due to excess calories (principal); E11.40 Type 2 diabetes mellitus with diabetic neuropathy, unspecified; I11.0 Hypertensive heart disease with heart failure; I50.32 Chronic diastolic (congestive) heart failure; E78.5 Hyperlipidemia, unspecified; G62.9 Polyneuropathy, unspecified; F32.9 Major depressive disorder, single episode, unspecified; I48.91 Unspecified atrial fibrillation; I25.10 Atherosclerotic heart disease of native coronary artery without angina pectoris; J06.9 Acute upper respiratory infection, unspecified; Z98.890 Other specified postprocedural states; Z79.899 Other long term (current) drug therapy; Z79.84 Long term (current) use of oral hypoglycemic drugs ==

== ENCOUNTER 2021-04-25 10:21 | Emergency (ER) | payer OTHER ==
[~2021-04-25] VITALS: Wt 115.7 kg
[2021-04-25 11:23] LABS: BASO % 0.2 % (0.0-1.0); EOS # 0.2 10*3/uL (0.0-0.4); EOS % 4.3 % (1.0-4.0); HEMATOCRIT 36.9 % (42.0-52.0); LYMPH # 1.3 10*3/uL (1.3-4.4); LYMPH % 25.5 % (27.0-41.0); MEAN CELL VOLUME 88.3 fl (80.0-94.0); MEAN CORPUSCULAR HGB 29.7 pg (27.0-31.0); MEAN CORPUSCULAR HGB CONC 33.6 g/dl (33.0-37.0); MEAN PLATELET VOLUME 9.9 fl (9.6-12.3); MONO # 0.4 10*3/uL (0.1-1.0); MONO % 7.3 % (3.0-9.0); NEUT # 3.2 10*3/uL (2.3-7.9); NEUT % 62.3 % (47.0-73.0); PLATELET COUNT AUTOMATED 139 10*3/uL (130-400); RED BLOOD COUNT 4.18 10*6/uL (4.50-5.90); RED CELL DISTRI WIDTH 13.4 % (0-14.5); WHITE BLOOD COUNT 5.1 10*3/uL (4.8-10.8)
[2021-04-25 11:34] LABS: ACT PARTIAL THROMBO TIME 28.8 SECONDS (20.0-32.1)
[2021-04-25 11:39] LABS: ALBUMIN 3.4 gm/dl (3.1-4.5); ALKALINE PHOSPHATASE 77 U/L (45-117); BUN 22 mg/dl (7-24); CHLORIDE 107 mmol/L (98-107); CREATININE 0.87 mg/dL (0.70-1.30); POTASSIUM 3.5 mmol/L (3.5-5.1); SGOT/AST 13 IU/L (3-35); SGPT/ALT 30 U/L (12-78); SODIUM 142 mmol/L (136-145); TOTAL PROTEIN 6.9 gm/dL (6.4-8.2)
== END 2021-04-25 15:59 | disposition home or self-care (01) ==
LOC: ED 10:21
PROVIDERS: Nurse Practitioner Family
DX: U07.1 COVID-19 (principal); J12.82 Pneumonia due to coronavirus disease 2019

== ENCOUNTER 2021-05-05 13:01 | Emergency (ER) | payer OTHER ==
[2021-05-05 13:31] LABS: BASO % 0.3 % (0.0-1.0); EOS # 0.2 10*3/uL (0.0-0.4); EOS % 2.6 % (1.0-4.0); HEMATOCRIT 37.1 % (42.0-52.0); LYMPH # 2.2 10*3/uL (1.3-4.4); LYMPH % 27.7 % (27.0-41.0); MEAN CELL VOLUME 86.3 fl (80.0-94.0); MEAN CORPUSCULAR HGB 29.8 pg (27.0-31.0); MEAN CORPUSCULAR HGB CONC 34.5 g/dl (33.0-37.0); MONO # 0.4 10*3/uL (0.1-1.0); MONO % 5.4 % (3.0-9.0); NEUT # 4.9 10*3/uL (2.3-7.9); NEUT % 63.5 % (47.0-73.0); PLATELET COUNT AUTOMATED 199 10*3/uL (130-400); RED CELL DISTRI WIDTH 13.3 % (0-14.5); WHITE BLOOD COUNT 7.8 10*3/uL (4.8-10.8)
[2021-05-05 13:41] LABS: ACT PARTIAL THROMBO TIME 24.1 SECONDS (20.0-32.1)
[2021-05-05 14:01] LABS: ALBUMIN 3.5 gm/dl (3.1-4.5); ALKALINE PHOSPHATASE 79 U/L (45-117); BUN 18 mg/dl (7-24); CHLORIDE 105 mmol/L (98-107); CREATININE 0.92 mg/dL (0.70-1.30); LIPASE 58 U/L (73-393); POTASSIUM 3.2 mmol/L (3.5-5.1); SGOT/AST 22 IU/L (3-35); SGPT/ALT 40 U/L (12-78); SODIUM 139 mmol/L (136-145); TOTAL PROTEIN 7.2 gm/dL (6.4-8.2)
[2021-05-05] MEDS ORDERED: DECADRON6 M1 PO (17:31)
== END 2021-05-05 17:34 | disposition home or self-care (01) ==
LOC: ED 13:01
PROVIDERS: Emergency Medicine
DX: U07.1 COVID-19 (principal); J12.82 Pneumonia due to coronavirus disease 2019

== ENCOUNTER 2021-07-02 17:09 | Inpatient (IN) | payer OTHER ==
[~2021-07-02] VITALS: Ht 170 cm; Wt 110.0 kg
[~2021-07-02 17:09] MED LIST changes: +DECADRON6 M1 PO
[2021-07-02 17:22] VITALS: BP 177/87
[2021-07-02 18:34] LABS: BASO % 0.5 % (0.0-1.0); EOS # 0.3 10*3/uL (0.0-0.4); EOS % 4.2 % (1.0-4.0); HEMATOCRIT 39.4 % (42.0-52.0); LYMPH # 2.2 10*3/uL (1.3-4.4); LYMPH % 27.2 % (27.0-41.0); MEAN CELL VOLUME 89.5 fl (80.0-94.0); MEAN CORPUSCULAR HGB CONC 33.5 g/dl (33.0-37.0); MEAN PLATELET VOLUME 10.1 fl (9.6-12.3); MONO # 0.5 10*3/uL (0.1-1.0); MONO % 5.6 % (3.0-9.0); NEUT # 5.1 10*3/uL (2.3-7.9); NEUT % 62.3 % (47.0-73.0); PLATELET COUNT AUTOMATED 209 10*3/uL (130-400); RED CELL DISTRI WIDTH 13.2 % (0-14.5); WHITE BLOOD COUNT 8.2 10*3/uL (4.8-10.8)
[2021-07-02 18:47] LABS: ACT PARTIAL THROMBO TIME 26.8 SECONDS (20.0-32.1)
[2021-07-02 18:51] LABS: ALKALINE PHOSPHATASE 77 U/L (45-117); BUN 16 mg/dl (7-24); CHLORIDE 106 mmol/L (98-107); CREATININE 1.01 mg/dL (0.70-1.30); LIPASE 115 U/L (73-393); SGOT/AST 16 IU/L (3-35); SGPT/ALT 31 U/L (12-78); SODIUM 140 mmol/L (136-145); TOTAL PROTEIN 7.6 gm/dL (6.4-8.2)
[2021-07-02 19:21] LABS: BILIRUBIN Negative (Negative); BLOOD Trace-Lysed (Negative); CLARITY Clear (Clear); COLOR Yellow (Yellow); GLUCOSE 3+ (Negative); KETONE 1+ (Negative); LEUKO ESTERASE Negative (Negative); NITRITE Negative (Negative); SPECIFIC GRAVITY >= 1.030 (1.001-1.030); UROBILINOGEN 0.2 E.U./dl (0.0-1.0)
[2021-07-02 19:38] LABS: EPITHELIAL CELLS 0-2
[2021-07-02 19:39] LABS: BACTERIA 2+; MUCOUS 1+
[2021-07-02] MEDS ORDERED: XARE20MG PO (20:52)
[2021-07-02 22:40] VITALS: BP 137/79
[2021-07-03 00:03] VITALS: BP 158/86
[2021-07-03 00:20] VITALS: BP 164/84
[2021-07-03 06:22] LABS: BASO % 0.3 % (0.0-1.0); EOS # 0.3 10*3/uL (0.0-0.4); EOS % 3.8 % (1.0-4.0); LYMPH # 1.9 10*3/uL (1.3-4.4); LYMPH % 27.5 % (27.0-41.0); MEAN CELL VOLUME 88.8 fl (80.0-94.0); MEAN CORPUSCULAR HGB 30.1 pg (27.0-31.0); MEAN CORPUSCULAR HGB CONC 33.9 g/dl (33.0-37.0); MEAN PLATELET VOLUME 10.2 fl (9.6-12.3); MONO # 0.5 10*3/uL (0.1-1.0); NEUT # 4.3 10*3/uL (2.3-7.9); PLATELET COUNT AUTOMATED 183 10*3/uL (130-400); RED BLOOD COUNT 4.28 10*6/uL (4.50-5.90); RED CELL DISTRI WIDTH 13.2 % (0-14.5)
[2021-07-03 06:45] LABS: BUN 14 mg/dl (7-24); CHLORIDE 105 mmol/L (98-107); CREATININE 0.81 mg/dL (0.70-1.30); POTASSIUM 3.5 mmol/L (3.5-5.1); SGOT/AST 12 IU/L (3-35); SGPT/ALT 30 U/L (12-78); SODIUM 141 mmol/L (136-145); TOTAL PROTEIN 6.8 gm/dL (6.4-8.2)
[2021-07-03 06:52] LABS: ALKALINE PHOSPHATASE 66 U/L (45-117); FREE T4 0.92 ng/dl (0.76-1.46); THYROID STIM HORMONE (HS) 0.841 uIU/ml (0.358-4.75)
[2021-07-03 08:00] VITALS: BP 139/89
[2021-07-03] MEDS ORDERED: NORVASC10 MG PO (11:58)
[2021-07-03] MEDS ORDERED: LASIX20 MG PO (11:58)
[2021-07-03 12:00] VITALS: BP 156/95
[2021-07-03 16:00] VITALS: BP 140/97
[2021-07-03 20:00] VITALS: BP 138/85
[2021-07-04] VITALS: BP 139/88
[2021-07-04 05:59] LABS: BASO % 0.1 % (0.0-1.0); EOS # 0.2 10*3/uL (0.0-0.4); EOS % 3.1 % (1.0-4.0); LYMPH # 1.7 10*3/uL (1.3-4.4); LYMPH % 24.9 % (27.0-41.0); MEAN CELL VOLUME 88.5 fl (80.0-94.0); MEAN CORPUSCULAR HGB 29.6 pg (27.0-31.0); MEAN CORPUSCULAR HGB CONC 33.5 g/dl (33.0-37.0); MEAN PLATELET VOLUME 9.9 fl (9.6-12.3); MONO # 0.5 10*3/uL (0.1-1.0); MONO % 6.7 % (3.0-9.0); NEUT # 4.3 10*3/uL (2.3-7.9); NEUT % 64.9 % (47.0-73.0); PLATELET COUNT AUTOMATED 187 10*3/uL (130-400); RED BLOOD COUNT 4.52 10*6/uL (4.50-5.90); RED CELL DISTRI WIDTH 13.2 % (0-14.5); WHITE BLOOD COUNT 6.7 10*3/uL (4.8-10.8)
[2021-07-04 06:10] LABS: BUN 21 mg/dl (7-24); CHLORIDE 103 mmol/L (98-107); CREATININE 0.84 mg/dL (0.70-1.30); POTASSIUM 3.6 mmol/L (3.5-5.1); SODIUM 140 mmol/L (136-145)
[2021-07-04 08:39] VITALS: BP 165/91
[2021-07-04 12:00] VITALS: BP 150/87
[2021-07-04 16:01] VITALS: BP 152/74
[2021-07-04 20:00] VITALS: BP 147/82
[2021-07-05] VITALS: BP 134/70
[2021-07-05 06:18] LABS: BUN 24 mg/dl (7-24); CHLORIDE 103 mmol/L (98-107); CREATININE 0.87 mg/dL (0.70-1.30); POTASSIUM 3.4 mmol/L (3.5-5.1); SODIUM 139 mmol/L (136-145)
[2021-07-05 06:28] LABS: BASO % 0.2 % (0.0-1.0); EOS # 0.2 10*3/uL (0.0-0.4); EOS % 1.9 % (1.0-4.0); HEMATOCRIT 39.3 % (42.0-52.0); LYMPH # 2.1 10*3/uL (1.3-4.4); LYMPH % 23.7 % (27.0-41.0); MEAN CELL VOLUME 87.5 fl (80.0-94.0); MEAN CORPUSCULAR HGB 30.1 pg (27.0-31.0); MEAN CORPUSCULAR HGB CONC 34.4 g/dl (33.0-37.0); MEAN PLATELET VOLUME 10.1 fl (9.6-12.3); MONO # 0.6 10*3/uL (0.1-1.0); MONO % 6.5 % (3.0-9.0); NEUT # 5.9 10*3/uL (2.3-7.9); NEUT % 67.4 % (47.0-73.0); PLATELET COUNT AUTOMATED 203 10*3/uL (130-400); RED BLOOD COUNT 4.49 10*6/uL (4.50-5.90); RED CELL DISTRI WIDTH 12.9 % (0-14.5); WHITE BLOOD COUNT 8.8 10*3/uL (4.8-10.8)
[2021-07-05 08:00] VITALS: BP 142/86
[2021-07-05 12:00] VITALS: BP 138/81
[2021-07-05 16:00] VITALS: BP 127/72
[2021-07-05 20:00] VITALS: BP 134/76
[2021-07-06] VITALS: BP 131/82
[2021-07-06 06:44] LABS: CHLORIDE 100 mmol/L (98-107); POTASSIUM 3.4 mmol/L (3.5-5.1); SODIUM 137 mmol/L (136-145)
[2021-07-06 06:45] LABS: CREATININE 1.08 mg/dL (0.70-1.30)
[2021-07-06 06:50] LABS: BUN 34 mg/dl (7-24)
[2021-07-06 08:00] VITALS: BP 125/79
[2021-07-06 12:00] VITALS: BP 114/66
[2021-07-06 16:00] VITALS: BP 112/79
[2021-07-06 20:00] VITALS: BP 117/80
[2021-07-07] VITALS: BP 120/68
[2021-07-07 05:50] LABS: CREATININE 1.71 mg/dL (0.70-1.30); POTASSIUM 3.9 mmol/L (3.5-5.1)
[2021-07-07 06:17] LABS: BASO % 0.2 % (0.0-1.0); EOS # 0.2 10*3/uL (0.0-0.4); HEMATOCRIT 43.5 % (42.0-52.0); LYMPH # 2.5 10*3/uL (1.3-4.4); LYMPH % 21.5 % (27.0-41.0); MEAN CORPUSCULAR HGB 29.4 pg (27.0-31.0); MEAN CORPUSCULAR HGB CONC 33.1 g/dl (33.0-37.0); MEAN PLATELET VOLUME 10.5 fl (9.6-12.3); MONO # 0.8 10*3/uL (0.1-1.0); NEUT # 8.1 10*3/uL (2.3-7.9); NEUT % 68.9 % (47.0-73.0); PLATELET COUNT AUTOMATED 220 10*3/uL (130-400); RED BLOOD COUNT 4.89 10*6/uL (4.50-5.90); RED CELL DISTRI WIDTH 13.1 % (0-14.5); WHITE BLOOD COUNT 11.8 10*3/uL (4.8-10.8)
[2021-07-07 08:00] VITALS: BP 132/88
[2021-07-07 12:00] VITALS: BP 103/59
[2021-07-07 16:00] VITALS: BP 124/60
[2021-07-07 20:00] VITALS: BP 106/73
[2021-07-08] VITALS: BP 117/68
[2021-07-08 05:08] LABS: CREATININE 1.65 mg/dL (0.70-1.30); POTASSIUM 3.9 mmol/L (3.5-5.1)
[2021-07-08 09:13] VITALS: BP 118/51
[2021-07-08] MEDS ORDERED: NORVASC5 MG PO (11:10)
[2021-07-08] MEDS ORDERED: LASIX20 MG PO (11:11)
[2021-07-08 12:00] VITALS: BP 115/73
== END 2021-07-08 14:56 | disposition home or self-care (01) | DRG 291 ==
LOC: ED 17:09 → 4E 21:52 → EDHOLD 21:52 → 4E 07-03
PROVIDERS: Internal Medicine; Physician Assistant; Student in an Organized Health Care Education/Training Program; ADMIT Internal Medicine; ATTEND Internal Medicine
PROC: 4A02XM4 Measurement of Cardiac Total Activity, External Approach (ICD-10-PCS; principal; 2021-07-07)
PROC: 3E073KZ Introduction of Other Diagnostic Substance into Coronary Artery, Percutaneous Approach (ICD-10-PCS; 2021-07-07)
DX: I11.0 Hypertensive heart disease with heart failure (principal); J96.00 Acute respiratory failure, unspecified whether with hypoxia or hypercapnia; N17.0 Acute kidney failure with tubular necrosis; Z68.41 Body mass index [BMI] 40.0-44.9, adult; I50.32 Chronic diastolic (congestive) heart failure; D64.9 Anemia, unspecified; R31.9 Hematuria, unspecified; F17.210 Nicotine dependence, cigarettes, uncomplicated; E66.01 Morbid (severe) obesity due to excess calories; E78.5 Hyperlipidemia, unspecified; E87.6 Hypokalemia; N40.0 Benign prostatic hyperplasia without lower urinary tract symptoms; E11.42 Type 2 diabetes mellitus with diabetic polyneuropathy; I48.0 Paroxysmal atrial fibrillation; I25.10 Atherosclerotic heart disease of native coronary artery without angina pectoris; F32.A Depression, unspecified; E11.65 Type 2 diabetes mellitus with hyperglycemia; K21.9 Gastro-esophageal reflux disease without esophagitis; Z71.6 Tobacco abuse counseling; Z79.4 Long term (current) use of insulin; Z88.8 Allergy status to other drugs, medicaments and biological substances; Z80.0 Family history of malignant neoplasm of digestive organs; Z82.49 Family history of ischemic heart disease and other diseases of the circulatory system; R60.1 Generalized edema

== ENCOUNTER → 2021-07-25 | Outpatient (CLI) | payer OTHER ==
[~2021-07-25] MED LIST changes: +LASIX20 MG PO; +NORVASC10 MG PO; +XARE20MG PO
[2021-07-25 15:33] LABS: ALKALINE PHOSPHATASE 69 U/L (45-117); BUN 26 mg/dl (7-24); CHLORIDE 104 mmol/L (98-107); CREATININE 1.05 mg/dL (0.70-1.30); POTASSIUM 3.3 mmol/L (3.5-5.1); SGOT/AST 13 IU/L (3-35); SGPT/ALT 29 U/L (12-78); SODIUM 139 mmol/L (136-145); TOTAL PROTEIN 7.3 gm/dL (6.4-8.2)
== END | disposition home or self-care (01) ==
LOC: RESCLI 00:37
PROVIDERS: Internal Medicine; ATTEND Internal Medicine
DX: I11.0 Hypertensive heart disease with heart failure (principal); I50.32 Chronic diastolic (congestive) heart failure; E11.40 Type 2 diabetes mellitus with diabetic neuropathy, unspecified; Z79.899 Other long term (current) drug therapy

== ENCOUNTER → 2021-08-08 | Outpatient (CLI) | payer OTHER | END | disposition home or self-care (01) | LOC: RESCLI 03:48 | PROVIDERS: ATTEND Internal Medicine | DX: E11.40 Type 2 diabetes mellitus with diabetic neuropathy, unspecified (principal); I11.0 Hypertensive heart disease with heart failure; I25.10 Atherosclerotic heart disease of native coronary artery without angina pectoris; I50.32 Chronic diastolic (congestive) heart failure; G62.9 Polyneuropathy, unspecified; F32.9 Major depressive disorder, single episode, unspecified; I48.91 Unspecified atrial fibrillation; E78.5 Hyperlipidemia, unspecified; G47.00 Insomnia, unspecified; R60.9 Edema, unspecified; R39.11 Hesitancy of micturition; Z79.899 Other long term (current) drug therapy; Z88.8 Allergy status to other drugs, medicaments and biological substances; Z79.01 Long term (current) use of anticoagulants; Z79.4 Long term (current) use of insulin ==

== ENCOUNTER 2021-09-15 15:26 | Emergency (ER) | payer OTHER ==
[~2021-09-15] VITALS: Ht 170.1 cm; Wt 115.7 kg
[2021-09-15 15:59] LABS: BASO % 0.2 % (0.0-1.0); EOS # 0.2 10*3/uL (0.0-0.4); EOS % 2.6 % (1.0-4.0); HEMATOCRIT 38.3 % (42.0-52.0); LYMPH # 2.5 10*3/uL (1.3-4.4); LYMPH % 28.7 % (27.0-41.0); MEAN CELL VOLUME 88.2 fl (80.0-94.0); MEAN CORPUSCULAR HGB CONC 33.9 g/dl (33.0-37.0); MONO # 0.5 10*3/uL (0.1-1.0); MONO % 6.2 % (3.0-9.0); NEUT # 5.4 10*3/uL (2.3-7.9); NEUT % 62.1 % (47.0-73.0); PLATELET COUNT AUTOMATED 178 10*3/uL (130-400); RED BLOOD COUNT 4.34 10*6/uL (4.50-5.90); RED CELL DISTRI WIDTH 13.7 % (0-14.5); WHITE BLOOD COUNT 8.8 10*3/uL (4.8-10.8)
[2021-09-15 16:17] LABS: ALKALINE PHOSPHATASE 60 U/L (45-117); BUN 24 mg/dl (7-24); CHLORIDE 107 mmol/L (98-107); CREATININE 1.06 mg/dL (0.70-1.30); POTASSIUM 3.4 mmol/L (3.5-5.1); SGOT/AST 14 IU/L (3-35); SGPT/ALT 27 U/L (12-78); SODIUM 141 mmol/L (136-145); TOTAL PROTEIN 7.3 gm/dL (6.4-8.2)
[2021-09-15 16:26] LABS: ACT PARTIAL THROMBO TIME 27.3 SECONDS (20.0-32.1)
== END 2021-09-15 17:14 | disposition home or self-care (01) ==
LOC: ED 15:26
PROVIDERS: Emergency Medicine
DX: R06.02 Shortness of breath (principal); M79.89 Other specified soft tissue disorders; Z88.8 Allergy status to other drugs, medicaments and biological substances; Z79.899 Other long term (current) drug therapy; Z98.890 Other specified postprocedural states; Z87.891 Personal history of nicotine dependence

== ENCOUNTER → 2021-11-11 | Outpatient (CLI) | payer OTHER ==
[~2021-11-11] MED LIST changes: +CARVEDILOL6.25 MG PO; +COREG12.5 M1 PO; +LOSARTAN POTASS25 M1 PO; +POTASSIUM CHLO20 ME3 PO
== END | disposition home or self-care (01) ==
LOC: RESCLI 03:23
PROVIDERS: ATTEND Student in an Organized Health Care Education/Training Program
DX: I11.0 Hypertensive heart disease with heart failure (principal); E11.40 Type 2 diabetes mellitus with diabetic neuropathy, unspecified; E78.5 Hyperlipidemia, unspecified; K21.9 Gastro-esophageal reflux disease without esophagitis; I25.10 Atherosclerotic heart disease of native coronary artery without angina pectoris; I50.32 Chronic diastolic (congestive) heart failure; E55.9 Vitamin D deficiency, unspecified; G62.9 Polyneuropathy, unspecified; I48.91 Unspecified atrial fibrillation; G47.33 Obstructive sleep apnea (adult) (pediatric); G47.00 Insomnia, unspecified; F32.9 Major depressive disorder, single episode, unspecified; Z12.2 Encounter for screening for malignant neoplasm of respiratory organs; N43.3 Hydrocele, unspecified; K40.20 Bilateral inguinal hernia, without obstruction or gangrene, not specified as recurrent; Z79.899 Other long term (current) drug therapy; Z88.8 Allergy status to other drugs, medicaments and biological substances; Z87.891 Personal history of nicotine dependence; Z79.891 Long term (current) use of opiate analgesic; Z79.01 Long term (current) use of anticoagulants

== ENCOUNTER → 2021-12-12 | Outpatient (CLI) | payer OTHER | END | disposition home or self-care (01) | LOC: RESCLI 00:41 | PROVIDERS: ATTEND Internal Medicine | DX: I11.0 Hypertensive heart disease with heart failure (principal); E11.40 Type 2 diabetes mellitus with diabetic neuropathy, unspecified; G47.00 Insomnia, unspecified; E78.5 Hyperlipidemia, unspecified; I48.91 Unspecified atrial fibrillation; G62.9 Polyneuropathy, unspecified; F32.9 Major depressive disorder, single episode, unspecified; R39.11 Hesitancy of micturition; I50.32 Chronic diastolic (congestive) heart failure; I25.10 Atherosclerotic heart disease of native coronary artery without angina pectoris; Z87.891 Personal history of nicotine dependence; Z79.899 Other long term (current) drug therapy; Z79.01 Long term (current) use of anticoagulants ==

== ENCOUNTER → 2022-02-13 | Outpatient (CLI) | payer OTHER ==
[~2022-02-13] MED LIST changes: +ECOTRIN325 M1 PO; +HUMALOG100 UNIT/2 SC; +LANTUS SOL100 UNIT/1 SC
== END | disposition home or self-care (01) ==
LOC: RESCLI 00:03
PROVIDERS: ATTEND Internal Medicine
DX: E11.40 Type 2 diabetes mellitus with diabetic neuropathy, unspecified (principal); I11.0 Hypertensive heart disease with heart failure; I50.32 Chronic diastolic (congestive) heart failure; G45.9 Transient cerebral ischemic attack, unspecified; F32.9 Major depressive disorder, single episode, unspecified; E78.5 Hyperlipidemia, unspecified; G62.9 Polyneuropathy, unspecified; I48.91 Unspecified atrial fibrillation; G47.00 Insomnia, unspecified; M54.50 Low back pain, unspecified; R39.11 Hesitancy of micturition; Z87.891 Personal history of nicotine dependence; Z72.89 Other problems related to lifestyle; Z98.890 Other specified postprocedural states; Z82.49 Family history of ischemic heart disease and other diseases of the circulatory system; Z88.8 Allergy status to other drugs, medicaments and biological substances; Z79.84 Long term (current) use of oral hypoglycemic drugs; Z79.01 Long term (current) use of anticoagulants; Z79.899 Other long term (current) drug therapy

== ENCOUNTER 2022-03-21 11:19 | Emergency (ER) | payer OTHER ==
[~2022-03-21] VITALS: Ht 170.1 cm; Wt 115.7 kg
[2022-03-21 11:40] LABS: BASO % 0.3 % (0.0-1.0); EOS # 0.3 10*3/uL (0.0-0.4); EOS % 3.2 % (1.0-4.0); HEMATOCRIT 38.9 % (42.0-52.0); LYMPH # 1.8 10*3/uL (1.3-4.4); LYMPH % 22.6 % (27.0-41.0); MEAN CELL VOLUME 89.4 fl (80.0-94.0); MEAN CORPUSCULAR HGB 31.3 pg (27.0-31.0); MEAN PLATELET VOLUME 10.2 fl (9.6-12.3); MONO # 0.5 10*3/uL (0.1-1.0); MONO % 5.8 % (3.0-9.0); NEUT # 5.3 10*3/uL (2.3-7.9); NEUT % 67.5 % (47.0-73.0); PLATELET COUNT AUTOMATED 196 10*3/uL (130-400); RED BLOOD COUNT 4.35 10*6/uL (4.50-5.90); RED CELL DISTRI WIDTH 12.9 % (0-14.5); WHITE BLOOD COUNT 7.9 10*3/uL (4.8-10.8)
[2022-03-21 11:56] LABS: ALKALINE PHOSPHATASE 63 U/L (45-117); BUN 21 mg/dl (7-24); CHLORIDE 104 mmol/L (98-107); CREATININE 1.17 mg/dL (0.70-1.30); SGOT/AST 10 IU/L (3-35); SGPT/ALT 29 U/L (12-78); SODIUM 140 mmol/L (136-145); TOTAL PROTEIN 7.8 gm/dL (6.4-8.2)
[2022-03-21] MEDS ORDERED: NAPROXEN250 MG PO (12:19)
[2022-03-21] MEDS ORDERED: TYLENOL325 M1 PO (12:19)
[2022-03-21] MEDS ORDERED: HYDROCODONE-AC1 EAC1 PO (12:19)
[2022-03-21] MEDS ORDERED: VOLTAREN ARTHRI20 GM T (12:21)
== END 2022-03-21 12:45 | disposition home or self-care (01) ==
LOC: ED 11:19
PROVIDERS: Emergency Medicine
DX: S49.91XA Unspecified injury of right shoulder and upper arm, initial encounter (principal); E11.9 Type 2 diabetes mellitus without complications; I11.0 Hypertensive heart disease with heart failure; I50.9 Heart failure, unspecified; K21.9 Gastro-esophageal reflux disease without esophagitis; E78.5 Hyperlipidemia, unspecified; M19.90 Unspecified osteoarthritis, unspecified site; I25.10 Atherosclerotic heart disease of native coronary artery without angina pectoris; Z88.8 Allergy status to other drugs, medicaments and biological substances; Z79.899 Other long term (current) drug therapy; Z87.891 Personal history of nicotine dependence; W18.39XA Other fall on same level, initial encounter; Y93.89 Activity, other specified; Y92.89 Other specified places as the place of occurrence of the external cause; Y99.8 Other external cause status

== ENCOUNTER → 2022-03-24 | Outpatient (CLI) | payer OTHER ==
[~2022-03-24] MED LIST changes: +HYDROCODONE-AC1 EAC1 PO; +NAPROXEN250 MG PO; +TYLENOL325 M1 PO; +VOLTAREN ARTHRI20 GM T
== END | disposition home or self-care (01) ==
LOC: RESCLI 14:05
PROVIDERS: ATTEND Internal Medicine
DX: M75.00 Adhesive capsulitis of unspecified shoulder (principal); I11.0 Hypertensive heart disease with heart failure; I50.32 Chronic diastolic (congestive) heart failure; E11.40 Type 2 diabetes mellitus with diabetic neuropathy, unspecified; G47.00 Insomnia, unspecified; G62.9 Polyneuropathy, unspecified; I48.91 Unspecified atrial fibrillation; F32.9 Major depressive disorder, single episode, unspecified; I25.2 Old myocardial infarction; Z86.73 Personal history of transient ischemic attack (TIA), and cerebral infarction without residual deficits; Z79.899 Other long term (current) drug therapy

== ENCOUNTER → 2022-04-30 | Day surgery (SDC) | payer OTHER ==
[2022-04-27 08:38] LABS: BUN 21 mg/dl (9-23); CHLORIDE 97 mmol/L (98-107); CREATININE 1.29 mg/dL (0.70-1.30); POTASSIUM 4.2 mmol/L (3.4-5.1); SODIUM 136 mmol/L (136-145)
[~2022-04-30] VITALS: Ht 170.1 cm; Wt 108.9 kg
[2022-04-30 06:59] VITALS: BP 132/78
[2022-04-30 08:03] VITALS: BP 105/69
[2022-04-30 08:18] VITALS: BP 113/72
[2022-04-30 08:33] VITALS: BP 113/62
== END | disposition home or self-care (01) ==
LOC: SDC 04-27 12:30
PROVIDERS: ATTEND Orthopaedic Surgery
DX: G56.03 Carpal tunnel syndrome, bilateral upper limbs (principal); M25.511 Pain in right shoulder; M54.2 Cervicalgia; E11.40 Type 2 diabetes mellitus with diabetic neuropathy, unspecified; I25.10 Atherosclerotic heart disease of native coronary artery without angina pectoris; I25.2 Old myocardial infarction; I11.0 Hypertensive heart disease with heart failure; I50.9 Heart failure, unspecified; I48.91 Unspecified atrial fibrillation; Z85.828 Personal history of other malignant neoplasm of skin; Z87.891 Personal history of nicotine dependence; Z86.73 Personal history of transient ischemic attack (TIA), and cerebral infarction without residual deficits; Z79.899 Other long term (current) drug therapy

== ENCOUNTER → 2022-05-28 | Outpatient (CLI) | payer OTHER | END | disposition home or self-care (01) | LOC: CARD 03:07 | PROVIDERS: ATTEND Internal Medicine | DX: I49.1 Atrial premature depolarization (principal) ==

== ENCOUNTER 2022-07-07 11:55 | Emergency (ER) | payer OTHER ==
[~2022-07-07] VITALS: Ht 170.1 cm; Wt 104.3 kg
[2022-07-07] MEDS ORDERED: ZITHROMAX250 MG PO (15:56)
== END 2022-07-07 16:10 | disposition home or self-care (01) ==
LOC: ED 11:55
DX: J06.9 Acute upper respiratory infection, unspecified (principal); E11.9 Type 2 diabetes mellitus without complications; I25.10 Atherosclerotic heart disease of native coronary artery without angina pectoris; Z96.651 Presence of right artificial knee joint; Z98.890 Other specified postprocedural states; F17.210 Nicotine dependence, cigarettes, uncomplicated

== ENCOUNTER → 2023-04-09 | Outpatient (CLI) | payer OTHER ==
[~2023-04-09] MED LIST changes: +ALDACTONE25 MG PO; +ATORVASTATIN CA80 M1 PO; +METAMUCIL0.4 G1 PO; +METFORMIN HYD1000 MG PO; +MULTI-VITAMIN1 EACH PO; +PROZAC10 MG PO; +TAMSULOSIN HCL0.4 MG PO; +TORSEMIDE20 MG PO; +ZITHROMAX250 MG PO
== END | disposition home or self-care (01) ==
LOC: RESCLI 03:41
PROVIDERS: ATTEND Internal Medicine
DX: E11.40 Type 2 diabetes mellitus with diabetic neuropathy, unspecified (principal); G47.00 Insomnia, unspecified; I10 Essential (primary) hypertension; G62.9 Polyneuropathy, unspecified; I48.91 Unspecified atrial fibrillation; N40.1 Benign prostatic hyperplasia with lower urinary tract symptoms; Z87.891 Personal history of nicotine dependence; Z82.49 Family history of ischemic heart disease and other diseases of the circulatory system; Z98.890 Other specified postprocedural states; Z79.899 Other long term (current) drug therapy

== ENCOUNTER 2023-04-30 08:25 | Emergency (ER) | payer OTHER ==
[~2023-04-30] VITALS: Ht 170.1 cm; Wt 113.4 kg
[2023-04-30] MEDS ORDERED: HUMALOG100 UNIT/1 SC (08:39)
[2023-04-30] MEDS ORDERED: LANTUS SOL100 UNIT/1 SC (08:39)
== END 2023-04-30 10:14 | disposition home or self-care (01) ==
LOC: ED 08:25
DX: J06.9 Acute upper respiratory infection, unspecified (principal); R51.9 Headache, unspecified; R06.02 Shortness of breath; I25.2 Old myocardial infarction; E11.9 Type 2 diabetes mellitus without complications; I11.0 Hypertensive heart disease with heart failure; I50.9 Heart failure, unspecified; Z87.442 Personal history of urinary calculi; I48.91 Unspecified atrial fibrillation; Z98.890 Other specified postprocedural states; Z95.5 Presence of coronary angioplasty implant and graft; F17.210 Nicotine dependence, cigarettes, uncomplicated; Z20.822 Contact with and (suspected) exposure to COVID-19

== ENCOUNTER → 2023-06-14 | Outpatient (CLI) | payer OTHER ==
[~2023-06-14] MED LIST changes: +HUMALOG100 UNIT/1 SC
== END ==
LOC: RESCLI 10:22
PROVIDERS: ATTEND Student in an Organized Health Care Education/Training Program
DX: I11.0 Hypertensive heart disease with heart failure (principal); I50.32 Chronic diastolic (congestive) heart failure; E11.40 Type 2 diabetes mellitus with diabetic neuropathy, unspecified; E78.5 Hyperlipidemia, unspecified; G62.9 Polyneuropathy, unspecified; N40.1 Benign prostatic hyperplasia with lower urinary tract symptoms; I48.91 Unspecified atrial fibrillation; R07.89 Other chest pain; Z79.899 Other long term (current) drug therapy

== ENCOUNTER 2023-08-03 10:47 | Emergency (ER) | payer OTHER ==
[~2023-08-03] VITALS: Ht 170.1 cm; Wt 112.5 kg
[2023-08-03] MEDS ORDERED: JARDIANCE10 MG PO (11:15)
[2023-08-03] MEDS ORDERED: NITROGLYCERIN0.4 MG SL (11:17)
[2023-08-03] MEDS ORDERED: ALPHAGAN-P 0.2%5 ML OPH (11:18)
[2023-08-03 11:29] LABS: BASO % 0.2 % (0.0-1.0); EOS # 0.2 10*3/uL (0.0-0.4); EOS % 2.4 % (1.0-4.0); HEMATOCRIT 41.6 % (42.0-52.0); LYMPH % 20.9 % (27.0-41.0); MEAN CELL VOLUME 88.7 fl (80.0-94.0); MEAN CORPUSCULAR HGB 30.1 pg (27.0-31.0); MEAN CORPUSCULAR HGB CONC 33.9 g/dl (33.0-37.0); MEAN PLATELET VOLUME 10.2 fl (9.6-12.3); MONO # 0.5 10*3/uL (0.1-1.0); MONO % 5.4 % (3.0-9.0); NEUT # 6.9 10*3/uL (2.3-7.9); NEUT % 70.8 % (47.0-73.0); PLATELET COUNT AUTOMATED 180 10*3/uL (130-400); RED BLOOD COUNT 4.69 10*6/uL (4.50-5.90); WHITE BLOOD COUNT 9.8 10*3/uL (4.8-10.8)
[2023-08-03 11:50] LABS: POTASSIUM 3.9 mmol/L (3.4-5.1); TOTAL PROTEIN 8.2 gm/dL (6.0-8.0)
== END 2023-08-03 13:57 | disposition home or self-care (01) ==
LOC: ED 10:47
PROVIDERS: Physician Assistant Medical
DX: R07.89 Other chest pain (principal); I25.2 Old myocardial infarction; I25.10 Atherosclerotic heart disease of native coronary artery without angina pectoris; E11.9 Type 2 diabetes mellitus without complications; I50.9 Heart failure, unspecified; Z87.442 Personal history of urinary calculi; I48.91 Unspecified atrial fibrillation; Z98.890 Other specified postprocedural states; Z95.5 Presence of coronary angioplasty implant and graft; F17.210 Nicotine dependence, cigarettes, uncomplicated

== ENCOUNTER → 2023-12-02 | Outpatient (CLI) | payer OTHER ==
[~2023-12-02] MED LIST changes: +ALPHAGAN-P 0.2%5 ML OPH; +JARDIANCE10 MG PO; +NITROGLYCERIN0.4 MG SL
== END | disposition home or self-care (01) ==
LOC: RESCLI 02:49
PROVIDERS: ATTEND Internal Medicine
DX: R07.9 Chest pain, unspecified (principal); E11.9 Type 2 diabetes mellitus without complications; E11.40 Type 2 diabetes mellitus with diabetic neuropathy, unspecified; I50.32 Chronic diastolic (congestive) heart failure; I11.0 Hypertensive heart disease with heart failure; I48.91 Unspecified atrial fibrillation; N40.1 Benign prostatic hyperplasia with lower urinary tract symptoms; E78.5 Hyperlipidemia, unspecified; Z98.890 Other specified postprocedural states; Z79.899 Other long term (current) drug therapy; Z87.891 Personal history of nicotine dependence; Z82.49 Family history of ischemic heart disease and other diseases of the circulatory system; Z88.8 Allergy status to other drugs, medicaments and biological substances; Z86.73 Personal history of transient ischemic attack (TIA), and cerebral infarction without residual deficits

== ENCOUNTER 2024-02-04 17:13 | Emergency (ER) | payer OTHER ==
[~2024-02-04] VITALS: Ht 170.1 cm; Wt 113.9 kg
[2024-02-04 18:09] LABS: BASO % 0.2 % (0.0-1.0); EOS # 0.1 10*3/uL (0.0-0.4); EOS % 2.3 % (1.0-4.0); HEMATOCRIT 34.4 % (42.0-52.0); LYMPH # 1.8 10*3/uL (1.3-4.4); LYMPH % 40.8 % (27.0-41.0); MEAN CELL VOLUME 88.4 fl (80.0-94.0); MEAN CORPUSCULAR HGB 30.3 pg (27.0-31.0); MEAN CORPUSCULAR HGB CONC 34.3 g/dl (33.0-37.0); MEAN PLATELET VOLUME 10.4 fl (9.6-12.3); MONO # 0.2 10*3/uL (0.1-1.0); MONO % 5.3 % (3.0-9.0); NEUT # 2.2 10*3/uL (2.3-7.9); NEUT % 51.2 % (47.0-73.0); PLATELET COUNT AUTOMATED 137 10*3/uL (130-400); RED BLOOD COUNT 3.89 10*6/uL (4.50-5.90); RED CELL DISTRI WIDTH 13.2 % (0-14.5); WHITE BLOOD COUNT 4.3 10*3/uL (4.8-10.8)
[2024-02-04 18:31] LABS: BUN 12 mg/dl (9-23); CHLORIDE 99 mmol/L (98-107); POTASSIUM 2.9 mmol/L (3.4-5.1)
[2024-02-04] MEDS ORDERED: POTASSIUM CHLORIDE 20 MEQ TAB PO ONE (18:40)
[2024-02-04] MEDS ORDERED: FUROSEMIDE 40 MG/4 ML VIAL IV ONE (18:45)
[2024-02-04] MEDS ORDERED: INSULIN REGULAR, HUMAN 1 UNIT/0.01 ML IV ONE (18:45)
[2024-02-04] MEDS ORDERED: AVPAK AZITHROM250 M1 PO (18:48)
[2024-02-04] MEDS ORDERED: POTASSIUM CHLO20 ME3 PO (18:48)
== END 2024-02-04 20:11 | disposition home or self-care (01) ==
LOC: ED 17:13
PROVIDERS: Emergency Medicine
DX: J40 Bronchitis, not specified as acute or chronic (principal); Z20.822 Contact with and (suspected) exposure to COVID-19; E87.6 Hypokalemia; E11.9 Type 2 diabetes mellitus without complications; I25.10 Atherosclerotic heart disease of native coronary artery without angina pectoris; E78.5 Hyperlipidemia, unspecified; I25.2 Old myocardial infarction; I50.9 Heart failure, unspecified; I11.0 Hypertensive heart disease with heart failure; I48.91 Unspecified atrial fibrillation; Z98.890 Other specified postprocedural states; Z95.5 Presence of coronary angioplasty implant and graft; Z87.442 Personal history of urinary calculi; Z87.891 Personal history of nicotine dependence

== ENCOUNTER 2024-04-13 14:07 | Emergency (ER) | payer OTHER ==
[~2024-04-13] VITALS: Ht 177.8 cm; Wt 122.5 kg
[~2024-04-13 14:07] MED LIST changes: +AVPAK AZITHROM250 M1 PO
[2024-04-13] MEDS ORDERED: Ondansetron Hydrochloride 4 MG/2 ML VIAL IV ONE (14:10)
[2024-04-13] MEDS ORDERED: MORPHINE Sulfate 2 MG/ML SYR IV ONE (14:10)
[2024-04-13 14:28] LABS: BASO % 0.3 % (0.0-1.0); EOS # 0.2 10*3/uL (0.0-0.4); EOS % 2.1 % (1.0-4.0); HEMATOCRIT 36.2 % (42.0-52.0); MEAN CELL VOLUME 90.3 fl (80.0-94.0); MEAN CORPUSCULAR HGB 30.2 pg (27.0-31.0); MEAN CORPUSCULAR HGB CONC 33.4 g/dl (33.0-37.0); MEAN PLATELET VOLUME 9.7 fl (9.6-12.3); MONO # 0.5 10*3/uL (0.1-1.0); MONO % 6.5 % (3.0-9.0); NEUT # 4.7 10*3/uL (2.3-7.9); NEUT % 66.6 % (47.0-73.0); PLATELET COUNT AUTOMATED 144 10*3/uL (130-400); RED BLOOD COUNT 4.01 10*6/uL (4.50-5.90); RED CELL DISTRI WIDTH 13.8 % (0-14.5); WHITE BLOOD COUNT 7.1 10*3/uL (4.8-10.8)
[2024-04-13 14:56] LABS: POTASSIUM 3.8 mmol/L (3.4-5.1)
[2024-04-13] MEDS ORDERED: PERCOCET 5-3251 EACH PO (15:59)
== END 2024-04-13 16:44 | disposition home or self-care (01) ==
LOC: ED 14:07
PROVIDERS: Emergency Medicine
DX: S09.8XXA Other specified injuries of head, initial encounter (principal); M25.551 Pain in right hip; I11.0 Hypertensive heart disease with heart failure; I50.9 Heart failure, unspecified; E11.9 Type 2 diabetes mellitus without complications; E78.5 Hyperlipidemia, unspecified; I48.91 Unspecified atrial fibrillation; I25.2 Old myocardial infarction; I25.10 Atherosclerotic heart disease of native coronary artery without angina pectoris; R51.9 Headache, unspecified; Z87.442 Personal history of urinary calculi; Z98.890 Other specified postprocedural states; Z95.5 Presence of coronary angioplasty implant and graft; Z90.49 Acquired absence of other specified parts of digestive tract; Z87.891 Personal history of nicotine dependence; W01.10XA Fall on same level from slipping, tripping and stumbling with subsequent striking against unspecified object, initial encounter; Y93.89 Activity, other specified; Y92.89 Other specified places as the place of occurrence of the external cause; Y99.8 Other external cause status

== ENCOUNTER 2024-06-20 13:13 | Emergency (ER) | payer OTHER ==
[~2024-06-20] VITALS: Ht 170.1 cm; Wt 108.9 kg
[~2024-06-20 13:13] MED LIST changes: +PERCOCET 5-3251 EACH PO
[2024-06-20 13:45] LABS: BASO % 0.2 % (0.0-1.0); EOS # 0.3 10*3/uL (0.0-0.4); EOS % 3.2 % (1.0-4.0); HEMATOCRIT 35.8 % (42.0-52.0); MEAN CORPUSCULAR HGB 30.8 pg (27.0-31.0); MEAN CORPUSCULAR HGB CONC 33.5 g/dl (33.0-37.0); MEAN PLATELET VOLUME 9.6 fl (9.6-12.3); MONO # 0.4 10*3/uL (0.1-1.0); MONO % 4.5 % (3.0-9.0); NEUT # 5.4 10*3/uL (2.3-7.9); NEUT % 65.7 % (47.0-73.0); PLATELET COUNT AUTOMATED 143 10*3/uL (130-400); RED BLOOD COUNT 3.89 10*6/uL (4.50-5.90); RED CELL DISTRI WIDTH 13.4 % (0-14.5); WHITE BLOOD COUNT 8.2 10*3/uL (4.8-10.8)
[2024-06-20 14:05] LABS: BUN 25 mg/dl (9-23); CHLORIDE 104 mmol/L (98-107)
== END 2024-06-20 14:50 | disposition home or self-care (01) ==
LOC: ED 13:13
PROVIDERS: Emergency Medicine
DX: J40 Bronchitis, not specified as acute or chronic (principal); Z20.822 Contact with and (suspected) exposure to COVID-19; E11.9 Type 2 diabetes mellitus without complications; I10 Essential (primary) hypertension; E78.5 Hyperlipidemia, unspecified; I48.91 Unspecified atrial fibrillation; Z79.899 Other long term (current) drug therapy; Z79.2 Long term (current) use of antibiotics; Z79.4 Long term (current) use of insulin; Z79.84 Long term (current) use of oral hypoglycemic drugs; Z98.890 Other specified postprocedural states; Z87.891 Personal history of nicotine dependence; Z86.73 Personal history of transient ischemic attack (TIA), and cerebral infarction without residual deficits

== ENCOUNTER 2024-08-04 12:08 | Emergency (ER) | payer OTHER ==
[~2024-08-04] VITALS: Wt 104.3 kg
[2024-08-04 12:44] LABS: BASO % 0.2 % (0.0-1.0); EOS # 0.2 10*3/uL (0.0-0.4); EOS % 2.2 % (1.0-4.0); MEAN CELL VOLUME 93.9 fl (80.0-94.0); MEAN CORPUSCULAR HGB 30.7 pg (27.0-31.0); MEAN CORPUSCULAR HGB CONC 32.7 g/dl (33.0-37.0); MEAN PLATELET VOLUME 10.6 fl (9.6-12.3); MONO # 0.5 10*3/uL (0.1-1.0); MONO % 5.6 % (3.0-9.0); NEUT # 5.8 10*3/uL (2.3-7.9); NEUT % 65.7 % (47.0-73.0); PLATELET COUNT AUTOMATED 161 10*3/uL (130-400); RED BLOOD COUNT 3.94 10*6/uL (4.50-5.90); RED CELL DISTRI WIDTH 13.7 % (0-14.5); WHITE BLOOD COUNT 8.9 10*3/uL (4.8-10.8)
[2024-08-04] MEDS ORDERED: ROSUVASTATIN CA20 MG PO (12:54)
[2024-08-04 12:55] LABS: ACT PARTIAL THROMBO TIME 20.2 SECONDS (20.0-32.1)
[2024-08-04] MEDS ORDERED: Metoprolol Tartrate 5 MG/5 ML VIAL IV ONE (13:10)
[2024-08-04] MEDS ORDERED: SODIUM CHLORIDE 0.9% 1,000 ML IV ONE (13:10)
== END 2024-08-04 15:11 | disposition short-term general hospital (02) ==
LOC: ED 12:08
PROVIDERS: Emergency Medicine
DX: I48.91 Unspecified atrial fibrillation (principal); N17.9 Acute kidney failure, unspecified; R00.1 Bradycardia, unspecified; E11.9 Type 2 diabetes mellitus without complications; E78.5 Hyperlipidemia, unspecified; I11.0 Hypertensive heart disease with heart failure; I50.9 Heart failure, unspecified; Z79.899 Other long term (current) drug therapy; Z79.4 Long term (current) use of insulin; Z98.890 Other specified postprocedural states; Z87.442 Personal history of urinary calculi; Z87.891 Personal history of nicotine dependence; Z86.73 Personal history of transient ischemic attack (TIA), and cerebral infarction without residual deficits

== ENCOUNTER → 2025-02-16 | Outpatient (CLI) | payer OTHER ==
[~2025-02-16] MED LIST changes: +CARVEDILOL12.5 MG PO; +DOXYCYCLINE HY100 M3 PO; +GUAIFEN-CODEINE5 ML PO; +ROSUVASTATIN CA20 MG PO
== END | disposition home or self-care (01) ==
LOC: RESCLI 02:58
PROVIDERS: ATTEND Internal Medicine
DX: E11.40 Type 2 diabetes mellitus with diabetic neuropathy, unspecified (principal); I11.0 Hypertensive heart disease with heart failure; I50.32 Chronic diastolic (congestive) heart failure; I48.91 Unspecified atrial fibrillation; N40.1 Benign prostatic hyperplasia with lower urinary tract symptoms; E78.5 Hyperlipidemia, unspecified; Z79.899 Other long term (current) drug therapy